=== PATIENT | female | born 1955 | race Two or more races ===

== ENCOUNTER 2025-03-05 00:53 | Inpatient (IN) | payer MEDICARE, OTHER ==
[~2025-03-05] VITALS: Ht 160 cm; Wt 72.8 kg
--- NOTE | 2025-03-05 01:34 | ED.PDOC ---
GI ASSESSMENT HPI Comments 69-year-old female who came to ER via EMS for GI bleed. Patient has a history of multiple sclerosis. From [facility], where patient came in for low hemoglobin levels, (7.1), and episodes of GI bleed. States she has been having abdominal pain and melena for the past 3 days. Denies any nausea or vomiting. Patient was given 1 unit of blood prior to arrival at the ER. Denies any prior history of GI bleed Chief Complaint: GI Bleed Time Seen by MD: 01:33 Reviewed Notes: Nurses Notes Allergies: Coded Allergies: Lisinopril (Verified Allergy, Unknown, 03/05/25) Information Source: Patient Mode of Arrival: EMS Timing: Days Duration: Intermittent Prehospital treatment: Other (Blood transfusion) Quality: Aching, Cramping Vomitus: None Stool: Black Severity: Moderate Recent: None Recent Hx of: None Pain Location: Epigastric Modifying Factors: Nothing Associated sign and symptoms: Diarrhea, Melena, Abdominal Pain Past Medical History Past Medical History (Other): Multiple sclerosis Surgical History: Denies all surgeries INTERIOR DESIGN DIRECTOR History: Denies all INTERIOR DESIGN DIRECTOR Hx Family History Family History: Reviewed,noncontributory to illness Social History Smoker: Non-Smoker Alcohol: Denies ETOH Use Drugs: Denies Drug Use Lives In: Home Constitutional: reports: weakness; denies: chills, diaphoresis, fatigue, fever, malaise, sweats, others EENTM: denies: blurred vision, double vision, ear bleeding, ear discharge, ear drainage, ear pain, ear ringing, eye pain, eye redness, hearing loss, mouth pain, mouth swelling, nasal discharge, nose bleeding, nose congestion, nose pain, photophobia, tearing, throat pain, throat swelling, voice changes, others Respiratory: denies: cough, hemoptysis, orthopnea, SOB at rest, shortness of breath, SOB with excertion, stridor, wheezing, others Cardiovascular: denies: chest pain, dizzy spells, diaphoresis, Dyspnea on exertion, edema, irregular heart beat, left arm pain, lightheadedness, palpitations, PND, syncope, others Gastrointestinal: reports: abdominal pain, melena; denies: abdomen distended, blood streaked bowels, constipated, diarrhea, dysphagia, difficulty swallowing, hematemesis, nausea, poor appetite, poor fluid intake, rectal bleeding, rectal pain, vomiting, others Genitourinary: denies: abnormal vagina bleeding, burning, dyspareunia, dysuria, flank pain, frequency, hematuria, incontinence, pain, , vagina discharge, urgency, others Neurological: denies: dizziness, fainting, headache, left sided numbness, left sided weakness, numbness, paresthesia, pre-existing deficit, right sided numbness, right sided weakness, seizure, speech problems, tingling, tremors, weakness, others Musculoskeletal: denies: back pain, gout, joint pain, joint swelling, muscle pain, muscle stiffness, neck pain, others Integumetry: denies: bruises, change in color, change in hair/nails, dryness, laceration, lesions, lumps, rash, wounds, others Allergic/Immunocompromised: denies: Difficulty Healing, Frequent Infections, Hives, Itching, others Hematologic/Lymphatic: denies: anemia, blood clots, easy bleeding, easy bruising, swollen glands, others Endocrine: denies: excessive hunger, excessive sweating, excessive thirst, excessive urination, flushing, intolerance to cold, intolerance to heat, unexplained weight gain, unexplained weight loss, others Psychiatric: denies: anxiety, bipolar disorder, depression, hopeless, panic disorder, schizophrenia, sleepless, suicidal, others Physical Exam General Appearance: No Apparent Distress, Normal HEENT: Normal ENT Inspection, Pharynx Normal, TMs Normal Neck: Full Range of Motion, Non-Tender, Normal, Normal Inspection Respiratory: Chest Non-Tender, Lungs Clear, No Accessory Muscle Use, No Respiratory Distress, Normal Breath Sounds Cardiovascular: No Edema, No JVD, No Murmur, No Gallop, Normal Peripheral Pulses, Regular Rate/Rhythm Breast Exam: Deferred Gastrointestinal: No Organomegaly, Non Tender, No Pulsatile Mass, Normal Bowel Sounds, Soft Genitalia: Deferred Pelvic: Deferred Rectal: Deferred Extremities: No calf tenderness, Normal capillary refill, Normal inspection, Normal range of motion, Non-tender, No pedal edema Musculoskeletal : Apperance: Normal Neurologic: Alert, mower mechanic II-XII nml as Tested, No Motor Deficits, Normal Affect, Normal Mood, No Sensory Deficits Cerebellar Function: Normal Reflexes: Normal Skin: Dry, Normal Color, Warm Lymphatic: No Adenopathy Was a procedure done? Was a procedure done?: No GI differential Dx Differential Diagnosis: Diverticular disease, Gastritis/PUD, Gastroenteritis, GI hemorrhage, Inflammatory BD, Ischemic Bowel, Dehydration, Hypovolemia, Anemia X-Ray, Labs, Meds, VS Vital Signs Date Time Temp Pulse Resp B/P (MAP) Pulse Ox O2 Delivery O2 Flow Rate FiO2 03/05/25 01:44 97.9 79 17 148/65 (92) 97 97.9 03/05/25 01:44 79 17 97 Room Air* 0 21 03/05/25 00:53 98.1 73 18 166/84 (111) 96 98.1 Lab Test 03/05/25 03:15 Range/Units White Blood Count 5.4 4.4-10.8 10^3/uL Red Blood Count 4.88 4.0-5.20 10^6/uL Hemoglobin 9.4 L 12.2-16.2 g/dL Hematocrit 31.0 L 36.0-46.0 % Mean Corpuscular Volume 63.5 L 80.0-100.0 fL Mean Corpuscular Hemoglobin 19.3 L 28.0-32.0 pg Mean Corpuscular Hemoglobin Concent 30.4 L 32.0-36.0 g/dL Red Cell Distribution Width 30.3 H 11.8-14.3 % Platelet Count 377 140-450 10^3/uL Mean Platelet Volume 8.4 6.9-10.8 fL Neutrophils (%) (Auto) 60.5 37.0-80.0 % Lymphocytes (%) (Auto) 19.6 10.0-50.0 % Monocytes (%) (Auto) 15.6 H 0.0-12.0 % Eosinophils (%) (Auto) 3.4 0.0-7.0 % Basophils (%) (Auto) 0.9 0.0-2.0 % Neutrophils # (Auto) 3.2 1.6-8.6 10 ^3/uL Lymphocytes # (Auto) 1.0 0.4-5.4 10 ^3/uL Monocytes # (Auto) 0.8 0-1.3 10 ^3/uL Eosinophils # (Auto) 0.2 0-0.8 10 ^3/uL Basophils # (Auto) 0 0-0.2 10 ^3/uL Nucleated Red Blood Cells 0.0 % Platelet Estimate Pending Sodium Level 141 136-145 mmol/L Potassium Level 4.3 3.5-5.1 mmol/L Chloride Level 108 H 98-107 mmol/L Carbon Dioxide Level 25 20-31 mmol/L Anion Gap 8 5-15 Blood Urea Nitrogen 11 9-23 mg/dL Creatinine 0.54 L 0.550-1.02 mg/dL Glomerular Filtration Rate Calc 101 >90 mL/min BUN/Creatinine Ratio 20.4 H 10.0-20.0 Serum Glucose 93 74-106 mg/dL Calcium Level 8.9 8.7-10.4 mg/dL Troponin I High Sensitivity 5 </=34 ng/L Time of 1ST Reevaluation: 01:29 Reevaluation 1ST: Unchanged Patient Education/Counseling: Diagnosis, Treatment Family Education/Counseling: No Family Present Departure 1 Departure Time of Disposition: 04:01 (Patient was a transfer for GI bleed from outside hospital. Patient with black stool or melena. Outside CT scan shows inflammation in the lower abdomen. Patient received 1 unit of blood and antibiotics at the outside hospital.) Impression: Primary Impression: Melena Additional Impression: Generalized weakness Disposition: ADMITTED INPATIENT Admit to: Med Surg Condition: Serious Critical Care Note Critical Care Time?: Yes Critical care comment: Concern for GI bleed Authorized and Performed by: Siddharth Porter MD Total critical care time: Approximately 34 minutes Due to a high probability of clinically significant, life threatening deterioration, the patient required my highest level of preparedness to intervene emergently and I personally spent this critical care time directly and personally managing the patient. This critical care time included obtaining a history; examining the patient; pulse oximetry; ordering and review of studies; arranging urgent treatment with development of a management plan; evaluation of patient's response to treatment; frequent reassessment; and, discussions with other providers. This critical care time was performed to assess and manage the high probability of imminent, life-threatening deterioration that could result in multi-organ failure. It was exclusive of separately billable procedures and treating other patients and teaching time. Please see my other sections and the rest of the note for further information on patient assessment and treatment. Stability Stability form required: No Heart Score Heart Score: Heart Score Response (Comments) Value History N/A 0 EKG N/A 0 Age N/A 0 Risk Factors N/A 0 Troponin N/A 0 Total 0 I personally scribed for SIDDHARTH PORTER MD ([email or web address]) on 03/05/25 at 01:34. Electronically submitted by Gamaliel Harrison ([email or web address]). SIDDHARTH PORTER MD March 05, 2025 01:34
[2025-03-05 01:44] VITALS: PULSE 79; RESP 17; O2SAT 97
[2025-03-05 03:35] LABS: Basophils % (auto) 0.9 % (0.0-2.0); Eosinophils # (auto) 0.2 10 ^3/uL (0-0.8); Monocytes # (auto) 0.8 10 ^3/uL (0-1.3)
[2025-03-05 03:37] LABS: Basophils # (auto) 0 10 ^3/uL (0-0.2); Eosinophils % (auto) 3.4 % (0.0-7.0); Hemoglobin 9.4 g/dL (12.2-16.2); Lymphocytes % (auto) 19.6 % (10.0-50.0); Mean Corpuscular Hemoglobin 19.3 pg (28.0-32.0); Mean Corpuscular Hgb Conc. 30.4 g/dL (32.0-36.0); Mean Corpuscular Volume 63.5 fL (80.0-100.0); Monocytes % (auto) 15.6 % (0.0-12.0); Neutrophils # (auto) 3.2 10 ^3/uL (1.6-8.6); Neutrophils % (auto) 60.5 % (37.0-80.0); Platelet Count (auto) 377 10^3/uL (140-450); Red Blood Cells 4.88 10^6/uL (4.0-5.20); Red Cell Distribution Width 30.3 % (11.8-14.3); White Blood Cell 5.4 10^3/uL (4.4-10.8)
[2025-03-05 03:47] LABS: Potassium 4.3 mmol/L (3.5-5.1); Sodium 141 mmol/L (136-145)
[2025-03-05 03:48] LABS: Anion Gap 8 (5-15); Calcium 8.9 mg/dL (8.7-10.4); Carbon Dioxide 25 mmol/L (20-31)
[2025-03-05 03:53] LABS: BUN/Creatinine Ratio 20.4 (10.0-20.0); Blood Urea Nitrogen 11 mg/dL (9-23); Glucose 93 mg/dL (74-106)
[2025-03-05 03:58] LABS: Chloride 108 mmol/L (98-107)
[2025-03-05 04:05] VITALS: PULSE 74; RESP 19; O2SAT 95
[2025-03-05 05:05] LABS: Anisocytosis Moderate; Hypochromia Moderate
[2025-03-05 05:06] LABS: Platelet Estimate Adequate
--- NOTE | 2025-03-05 07:43 | DVHHP2 ---
History of Present Illness Reason for Visit: abdominal pain History of Present Illness Ana Clayton is a 69YO F with pmHx of cholelithiasis, multiple sclerosis, bowel incontinence, urinary incontinence, and wheelchair-bound who presents to the ED with abdominal pain with dark stools x 3 days. Patient reports that she was at [facility] and prior to that she was at her primary doctor which told her that she had low iron which then she went to the ED for evaluation. She states at [place] she was given 1 unit of PRBC. Patient states that she uses a diaper for the incontinence. Patient states that she has not ambulated and uses an electric scooter to get around. Patient also reports that she lives alone, does not smoke drink or do any drugs. Patient denies any recent trauma or injury, recent sick contacts, recent trave ls, recent ingestion of spoiled food, fever, chills, chest pain, shortness of breath, nausea, vomiting, or diarrhea. Past Medical History Cholelithiasis Multiple sclerosis Bowel incontinence Urinary incontinence Past Surgical History: None Family History: Other (Dad with diabetes and liver cancer. Mom with abdominal cancer now .) Smoke: No ALCOHOL: none Drugs: None Lives: Alone Domestic Violence: Neg Review of Systems Gastrointestinal: Abdominal Pain, Melena Allergies: Coded Allergies: Lisinopril (Verified Allergy, Unknown, 03/05/25) Exam Vital Signs Vital Signs Date Time Temp Pulse Resp B/P (MAP) Pulse Ox O2 Delivery O2 Flow Rate FiO2 03/05/25 06:30 70 16 117/90 (99) 94 03/05/25 04:05 Room Air* 0 21 03/05/25 03:58 98.4 98.4 General Appearance: Alert, Oriented X3, Cooperative, No acute distress HEENT: Atraumatic, PERRLA, EOMI, Mucous membr. moist/pink Respiratory: Clear to auscultation, Normal air movement Cardiovascular: Regular rate, Normal S1, Normal S2, No murmurs Abdominal: Soft Neuro: Normal speech, Normal tone, Sensation intact Psych/Mental Status: Mental status NL, Mood NL Labs/Xrays Labs Test 03/05/25 05:53 03/05/25 03:15 Range/Units Troponin I High Sensitivity 5 </=34 ng/L White Blood Count 5.4 4.4-10.8 10^3/uL Red Blood Count 4.88 4.0-5.20 10^6/uL Hemoglobin 9.4 L 12.2-16.2 g/dL Hematocrit 31.0 L 36.0-46.0 % Mean Corpuscular Volume 63.5 L 80.0-100.0 fL Mean Corpuscular Hemoglobin 19.3 L 28.0-32.0 pg Mean Corpuscular Hemoglobin Concent 30.4 L 32.0-36.0 g/dL Red Cell Distribution Width 30.3 H 11.8-14.3 % Platelet Count 377 140-450 10^3/uL Mean Platelet Volume 8.4 6.9-10.8 fL Neutrophils (%) (Auto) 60.5 37.0-80.0 % Lymphocytes (%) (Auto) 19.6 10.0-50.0 % Monocytes (%) (Auto) 15.6 H 0.0-12.0 % Eosinophils (%) (Auto) 3.4 0.0-7.0 % Basophils (%) (Auto) 0.9 0.0-2.0 % Neutrophils # (Auto) 3.2 1.6-8.6 10 ^3/uL Lymphocytes # (Auto) 1.0 0.4-5.4 10 ^3/uL Monocytes # (Auto) 0.8 0-1.3 10 ^3/uL Eosinophils # (Auto) 0.2 0-0.8 10 ^3/uL Basophils # (Auto) 0 0-0.2 10 ^3/uL Nucleated Red Blood Cells 0.0 % Platelet Estimate Adequate Hypochromasia (manual) Moderate Anisocytosis (manual) Moderate Microcytosis Marked Sodium Level 141 136-145 mmol/L Potassium Level 4.3 3.5-5.1 mmol/L Chloride Level 108 H 98-107 mmol/L Carbon Dioxide Level 25 20-31 mmol/L Anion Gap 8 5-15 Blood Urea Nitrogen 11 9-23 mg/dL Creatinine 0.54 L 0.550-1.02 mg/dL Glomerular Filtration Rate Calc 101 >90 mL/min BUN/Creatinine Ratio 20.4 H 10.0-20.0 Serum Glucose 93 74-106 mg/dL Calcium Level 8.9 8.7-10.4 mg/dL Assessment/Plan Assessment/Plan Assessment Intractable abdominal pain with melena rule out GIB Anemia Hypertension Cholelithiasis History of multiple sclerosis wheelchair-bound History of bowel incontinence History of urinary incontinence Plan admit to ms RBC morphology Troponin negative x2 UA Type and screen Antiemetics Trend CBC pain mgmt Iron panel IV fluids CT abdomen and pelvis ordered Stool OB ordered NPO Per patient does not take home medications DVT prophylaxis-scds PUD prophylaxis-PPIs hold anticoags Discussed plan of care with patient and nurse GI consult Plan discussed with: Patient My Orders Orders - BRIAN MIJARES Procedure Category Date Status Time Admit ADMIT 03/05/25 Verified 07:39 Allergies TAMIKA 03/05/25 Verified 07:39 Code Status CODE 03/05/25 Verified 07:39 0.9% Ns 1000 Ml PHA 03/05/25 Verified 07:45 Comprehensive LAB 03/06/25 Verified Metabolic Panel 04:00 Npo (Nothing By DIET 03/05/25 Verified Mouth) Diet Breakfast Acetaminophen Tablet PHA 03/05/25 Verified (Tylenol Tablet) 07:45 Sequential TAMIKA 03/05/25 Verified Compression Device Nitroglycerin PHA 03/05/25 Verified Sublingual (Ntrostat 07:45 Morphine Sulfate PHA 03/05/25 Verified Injection 07:45 Stat Ekg For Chest TAMIKA 03/05/25 Verified Pain 07:39 Notify Md Of Changes TAMIKA 03/05/25 Verified From Base 07:39 [employer] TAMIKA 03/05/25 Verified 24 Hours 07:39 Emergency Dysrhythmia TAMIKA 03/05/25 Verified Protocol 07:39 Rhythm Strips Once TAMIKA 03/05/25 Verified Every Shift 07:39 Oxygen By Nasal RT 03/05/25 Verified Cannula 07:39 Stool Occult Blood LAB 03/05/25 Verified 07:39 * Gi Dvh Apprentice Painter Hand CONS 03/05/25 Verified 07:39 Urinalysis LAB 03/05/25 Verified 07:39 Iron Panel LAB 03/05/25 Verified 07:39 Date of Service: March 05, 2025 Billing Provider: BRIAN MIJARES Common Visit Codes: [id number] INP/OBS CARE (HIGH) BRIAN MIJARES March 05, 2025 07:43
[2025-03-05] MEDS ORDERED: MORPHINE SULFATE INJ 2 MG/ml SYRG IV PRN (07:45)
[2025-03-05] MEDS ORDERED: NITROGLYCERIN 0.4 MG SL TAB SL PRN (07:45)
[2025-03-05 07:50] VITALS: PULSE 78; RESP 20; O2SAT 95
[2025-03-05 08:42] LABS: % Iron Saturation 8.4 % (15-50)
[2025-03-05] MEDS ORDERED: PANTOPRAZOLE 40 MG/10 ML VIAL INJ IV SCH ×2 (09:00→10:00)
[2025-03-05] MEDS ORDERED: MORPHINE SULFATE 4 MG/ML SYR/VIAL IV PRN (10:45)
--- NOTE | 2025-03-05 10:46 | DVH ---
CLINICAL INFORMATION: Abdominal pain. TECHNIQUE: Axial CT images of the abdomen and pelvis were obtained without IV contrast. Coronal and s agittal reformatted images were obtained, reviewed, and stored. Evaluation of the parenchymal organs is limited without IV contrast. Evaluation of the bowel and mesentery is limited without oral contras t. All CT scans at this medical facility are performed using dose modulation techniques as appropriat e to a performed exam including the following: Automated exposure control was utilized; adjustment of the MA and/or KV according to patient size; and use of iterative reconstruction technique. CTDIvol = 23.23 mGy DLP = 1196.81 mGy-cm COMPARISON: Prior outside CT dated 03/04/2025 FINDINGS: Lung bases: Atelectasis in the lung bases. Liver: Grossly unremarkable in its noncontrast enhanced appearance. No abnormal density or focal lesi on identified. Biliary: Calcified gallstones in the gallbladder. Mildly prominent common bile duct measuring up to 1 .1 cm in diameter near the level of the ivette hepatis. Spleen: Unremarkable. Pancreas: Grossly unremarkable in its noncontrast enhanced appearance. Adrenal glands: Unremarkable. No mass. Kidneys: No hydronephrosis. No renal or ureteral calculi. Aorta/Vascular: Moderate atherosclerotic calcification. No abdominal aortic aneurysm. Retroperitoneum: Mildly prominent left external iliac lymph node measures up to 1.1 x 0.8 cm. Left pe lvic sidewall lymph node measures up to 1.2 x 1.0 cm. Right pelvic sidewall lymph node measures up to 2.0 x 0.8 cm. Bowel/mesentery: No small bowel obstruction. Appendix is not visualized. Moderate to marked wall thic kening of the rectum. Pelvic organs: Grossly unremarkable. Bladder: Unremarkable. No mass. Abdominal wall: No mass or hernia. Bones: No acute fracture or suspicious intraosseous lesion. IMPRESSION: 1. Rectal wall thickening, similar compared to the CT from 03/04/2025. Malignancy not excluded. 2. Prominent external iliac and pelvic sidewall lymph nodes are indeterminate. Malignancy, including shabnam metastatic disease not excluded, particularly given the rectal wall thickening. PET-CT could be considered if clinically indicated. 3. Cholelithiasis. 4. Dilated common bile duct. Common bile duct obstruction not excluded. Correlate with clinical find ings. MRCP could be obtained to further characterize if clinically indicated.
[2025-03-05] MEDS: PANTOPRAZOLE 40 MG/10 ML VIAL INJ IV ONE (11:03)
[2025-03-05] MEDS: SODIUM CHLORIDE 0.9% 1,000 ML IV SCH (11:03)
[2025-03-05] MEDS: HYDROcodone-ACET 5/325MG TAB PO PRN (11:32)
[2025-03-05 15:40] LABS: Urine Bacteria FEW /hpf (None Seen); Urine Blood Negative /uL (Negative); Urine Clarity Turbid (Clear); Urine Color Colorless (Yellow); Urine Protein, UAD Negative (Negative); Urine Specific Gravity 1.008 (1.001-1.035); Urine Squamous Epithelial Cell None Seen /hpf (<5); Urine Urobilinogen Normal (Negative); Urine WBC 21 /HPF (0-5); Urine pH 7.5 (5.0-9.0)
[2025-03-05 17:10] VITALS: RESP 18; O2SAT 97
--- NOTE | 2025-03-05 19:30 | DVHINCON2 ---
Date of service: March 05, 2025 Referring Physician Demarcus Reason for Consultation GI bleed History of Present Illness Patient is a 69-year-old female wheelchair dependent history of MS, transferred from [facility] for GI bleed. Patient received 1 unit of packed red blood cells. Imaging studies suggest rectal thickening, and prominent abdominal lymph nodes. GI consultation was obtained for evaluation. Patient states that she has had melena for several days. She denies any history of recent endoscopy and colonoscopy and states that her last endoscopy and colonoscopy was approximately four years ago. Patient states that she has had three endoscopies and colonoscopies in the past without any significant findings. Patient denies any hematemesis, dysphagia or odynophagia. Patient complains of back pain. Past Medical History MS Wheelchair-bound Cholelithiasis Past Surgical History Denies Family History: stomach cancer G8 MOTHER Diabetes mellitus G8 FATHER FHx: liver cancer G8 FATHER Hypertension G8 MOTHER Malignant neoplasm of breast G8 SISTER Social History No tobacco alcohol or recreational drug use Allergies: Coded Allergies: Lisinopril (Verified Allergy, Unknown, 03/05/25) Current Medications Current Medications Medications (Trade) Dose Ordered Sig/Rut Route PRN Reason Start Time Stop Time Status Last Admin Sodium Chloride 1,000 ml @ 120 mls/hr Q8H20M IV 03/05/25 07:45 03/05/25 16:07 Acetaminophen/ Hydrocodone Bitart (Jarreau 5/325MG Tab) 1 tab Q4HP PRN PO MODERATE PAIN (4-6 PAIN SCALE) 03/05/25 07:45 03/05/25 11:32 Ondansetron HCl (Zofran) 4 mg Q4HP PRN IV NAUSEA / VOMITING 03/05/25 07:45 Acetaminophen (Tylenol Tablet) 650 mg Q6HP PRN PO PAIN SCALE 1-3 OR TEMP>100.4 03/05/25 07:45 Nitroglycerin (Ntrostat Sublingual) 0.4 mg Q5MINP PRN SL FOR CHEST PAIN 03/05/25 07:45 Morphine Sulfate 2 mg Q30M PRN IV FOR CHEST PAIN 03/05/25 07:45 Cancel Pantoprazole Sodium (Protonix) 40 mg DAILY IV 03/05/25 10:00 03/05/25 09:00 DC Pantoprazole Sodium (Protonix) 40 mg BID IV 03/05/25 09:00 03/05/25 10:46 DC Morphine Sulfate 2 mg Q30M PRN IV for chest pain 03/05/25 10:45 Pantoprazole Sodium (Protonix) 40 mg BID IV 03/05/25 22:00 Review of Systems Review of systems as per HPI Vital Signs Vital Signs Date Time Temp Pulse Resp B/P (MAP) Pulse Ox O2 Delivery O2 Flow Rate FiO2 03/05/25 17:10 18 97 Room Air* 0 21 03/05/25 14:00 98.8 76 162/64 (96) 98.8 Physical Exam General: Alert and oriented Head: NC/AT EOMI PERRLA Heart: Regular rate and rhythm Abdomen: Soft nontender nondistended Extremity: No clubbing cyanosis or edema Labs/Diagnostic Data Labs Test 03/05/25 11:00 03/05/25 05:53 03/05/25 03:15 Range/Units Urine Color Colorless Yellow Urine Clarity Turbid H Clear Urine pH 7.5 5.0-9.0 Urine Specific [place] 1.008 1.001-1.035 Urine Protein Negative Negative Urine Ketones Negative Negative Urine Blood Negative Negative /uL Urine Nitrite 1+ H Negative Urine Bilirubin Negative Negative Urine Urobilinogen Normal Negative mg/dL Urine Leukocyte Esterase 3+ Negative /uL Urine RBC 1 0 - 4 /hpf Urine Microscopic WBC 21 H 0-5 /HPF Urine Squamous Epithelial Cells None seen <5 /hpf Urine Bacteria Few H None Seen /hpf Urine Glucose Normal Normal mg/dL Iron Level 27 L 50-170 ug/dL Total Iron Binding Capacity 321 250-425 ug/dL Percent Iron Saturation 8.4 L 15-50 % Troponin I High Sensitivity 5 </=34 ng/L White Blood Count 5.4 4.4-10.8 10^3/uL Red Blood Count 4.88 4.0-5.20 10^6/uL Hemoglobin 9.4 L 12.2-16.2 g/dL Hematocrit 31.0 L 36.0-46.0 % Mean Corpuscular Volume 63.5 L 80.0-100.0 fL Mean Corpuscular Hemoglobin 19.3 L 28.0-32.0 pg Mean Corpuscular Hemoglobin Concent 30.4 L 32.0-36.0 g/dL Red Cell Distribution Width 30.3 H 11.8-14.3 % Platelet Count 377 140-450 10^3/uL Mean Platelet Volume 8.4 6.9-10.8 fL Neutrophils (%) (Auto) 60.5 37.0-80.0 % Lymphocytes (%) (Auto) 19.6 10.0-50.0 % Monocytes (%) (Auto) 15.6 H 0.0-12.0 % Eosinophils (%) (Auto) 3.4 0.0-7.0 % Basophils (%) (Auto) 0.9 0.0-2.0 % Neutrophils # (Auto) 3.2 1.6-8.6 10 ^3/uL Lymphocytes # (Auto) 1.0 0.4-5.4 10 ^3/uL Monocytes # (Auto) 0.8 0-1.3 10 ^3/uL Eosinophils # (Auto) 0.2 0-0.8 10 ^3/uL Basophils # (Auto) 0 0-0.2 10 ^3/uL Nucleated Red Blood Cells 0.0 % Platelet Estimate Adequate Hypochromasia (manual) Moderate Anisocytosis (manual) Moderate Microcytosis Marked Sodium Level 141 136-145 mmol/L Potassium Level 4.3 3.5-5.1 mmol/L Chloride Level 108 H 98-107 mmol/L Carbon Dioxide Level 25 20-31 mmol/L Anion Gap 8 5-15 Blood Urea Nitrogen 11 9-23 mg/dL Creatinine 0.54 L 0.550-1.02 mg/dL Glomerular Filtration Rate Calc 101 >90 mL/min BUN/Creatinine Ratio 20.4 H 10.0-20.0 Serum Glucose 93 74-106 mg/dL Calcium Level 8.9 8.7-10.4 mg/dL Assessment 1. GI bleed 2. MS 3. Microcytic anemia 4. Abnormal imaging of the rectum 5. Lymphadenopathy 6. Dilated common bile duct 7. Family history of stomach and liver cancer Problems(with codes): (1) Melena (2) Generalized weakness Plan/Recommendation 1. Follow H&H and transfuse to keep hemoglobin above seven 2. Protonix drip 3. Consider EGD and colonoscopy given findings on imaging 4. We will follow up in a.m. tomorrow Plan discussed with: Patient BRENDA JERONIMO MD March 05, 2025 19:30
[2025-03-05 20:00] VITALS: PULSE 79; O2SAT 97
[2025-03-05] MEDS: PANTOPRAZOLE 40 MG/10 ML VIAL INJ IV SCH (21:03)
[2025-03-05] MEDS: hydrALAZINE HCL 20 MG/ML VL IV PRN (22:55)
[2025-03-06] VITALS (7 sets, daily range): BP systolic 138–172; BP diastolic 81–96; PULSE 86–101; RESP 16–19; TEMP 97.6–98.4; O2SAT 93–96
[2025-03-06 08:02] LABS: Basophils # (auto) 0 10 ^3/uL (0-0.2); Eosinophils # (auto) 0 10 ^3/uL (0-0.8); Hemoglobin 10.5 g/dL (12.2-16.2); Lymphocytes # (auto) 0.6 10 ^3/uL (0.4-5.4); Mean Corpuscular Volume 64.1 fL (80.0-100.0); Monocytes # (auto) 0.5 10 ^3/uL (0-1.3); Neutrophils # (auto) 7.2 10 ^3/uL (1.6-8.6); White Blood Cell 8.4 10^3/uL (4.4-10.8)
[2025-03-06 08:06] LABS: Basophils % (auto) 0.3 % (0.0-2.0); Hematocrit 35.1 % (36.0-46.0); Lymphocytes % (auto) 7.6 % (10.0-50.0); Mean Corpuscular Hemoglobin 19.1 pg (28.0-32.0); Mean Corpuscular Hgb Conc. 29.8 g/dL (32.0-36.0); Neutrophils % (auto) 86.1 % (37.0-80.0); Platelet Count (auto) 406 10^3/uL (140-450); Red Blood Cells 5.47 10^6/uL (4.0-5.20); Red Cell Distribution Width 30.9 % (11.8-14.3)
[2025-03-06 08:08] LABS: Alanine Aminotransferase 10 U/L (7-40); Albumin 4.2 g/dL (3.2-4.8); Alkaline Phosphatase 107 U/L (46-116); Anion Gap 10 (5-15); Aspartate Aminotransferase 14 U/L (13-40); BUN/Creatinine Ratio 14.5 (10.0-20.0); Bilirubin, Total 0.8 mg/dL (0.2-1.0); Blood Urea Nitrogen 9 mg/dL (9-23); Calcium 9.6 mg/dL (8.7-10.4); Carbon Dioxide 24 mmol/L (20-31); Chloride 105 mmol/L (98-107); Potassium 3.9 mmol/L (3.5-5.1); Sodium 139 mmol/L (136-145); Total Protein 7.6 g/dL (5.7-8.2)
[2025-03-06 08:17] LABS: Glucose 106 mg/dL (74-106)
--- NOTE | 2025-03-06 10:58 | PRN ---
Misceleneous Note Note Note March 06, 2025 Subjective: Patient is hungry. She denies any gross bleeding. She complains of black pain but believes it is due to her lying in the bed where as she does not lying in bed at home she lives in [facility]. Current Medications Medications (Trade) Dose Ordered Sig/Rut Route PRN Reason Start Time Stop Time Status Last Admin Hydralazine HCl (Apresoline Injection) 10 mg Q6HP PRN IV SBP>150 03/05/25 22:45 03/05/25 22:55 Pantoprazole Sodium (Protonix) 40 mg BID IV 03/05/25 22:00 03/06/25 10:26 Vital Signs Date Time Temp Pulse Resp B/P (MAP) Pulse Ox O2 Delivery O2 Flow Rate FiO2 03/06/25 09:00 98.4 98 18 144/86 (105) 96 98.4 03/05/25 20:00 Room Air* 0 21 General: Alert and oriented x4 NC/AT EOMI PERRLA O/P clear Regular rate and rhythm Soft nontender nondistended No clubbing cyanosis or edema Labs Test 03/06/25 06:44 03/05/25 11:00 03/05/25 05:53 03/05/25 03:15 Range/Units White Blood Count 8.4 # 4.4-10.8 10^3/uL Red Blood Count 5.47 H 4.0-5.20 10^6/uL Hemoglobin 10.5 L 12.2-16.2 g/dL Hematocrit 35.1 #L 36.0-46.0 % Mean Corpuscular Volume 64.1 L 80.0-100.0 fL Mean Corpuscular Hemoglobin 19.1 L 28.0-32.0 pg Mean Corpuscular Hemoglobin Concent 29.8 L 32.0-36.0 g/dL Red Cell Distribution Width 30.9 H 11.8-14.3 % Platelet Count 406 140-450 10^3/uL Mean Platelet Volume 8.6 6.9-10.8 fL Neutrophils (%) (Auto) 86.1 H 37.0-80.0 % Lymphocytes (%) (Auto) 7.6 L 10.0-50.0 % Monocytes (%) (Auto) 6.0 0.0-12.0 % Eosinophils (%) (Auto) 0.0 0.0-7.0 % Basophils (%) (Auto) 0.3 0.0-2.0 % Neutrophils # (Auto) 7.2 1.6-8.6 10 ^3/uL Lymphocytes # (Auto) 0.6 0.4-5.4 10 ^3/uL Monocytes # (Auto) 0.5 0-1.3 10 ^3/uL Eosinophils # (Auto) 0 0-0.8 10 ^3/uL Basophils # (Auto) 0 0-0.2 10 ^3/uL Nucleated Red Blood Cells 0.0 % Sodium Level 139 136-145 mmol/L Potassium Level 3.9 3.5-5.1 mmol/L Chloride Level 105 98-107 mmol/L Carbon Dioxide Level 24 20-31 mmol/L Anion Gap 10 5-15 Blood Urea Nitrogen 9 9-23 mg/dL Creatinine 0.62 0.550-1.02 mg/dL Glomerular Filtration Rate Calc 98 >90 mL/min BUN/Creatinine Ratio 14.5 10.0-20.0 Serum Glucose 106 74-106 mg/dL Calcium Level 9.6 8.7-10.4 mg/dL Total Bilirubin 0.8 0.2-1.0 mg/dL Aspartate Amino Transferase (AST) 14 13-40 U/L Alanine Aminotransferase (ALT) 10 7-40 U/L Alkaline Phosphatase 107 46-116 U/L Total Protein 7.6 5.7-8.2 g/dL Albumin 4.2 3.2-4.8 g/dL Urine Color Colorless Yellow Urine Clarity Turbid H Clear Urine pH 7.5 5.0-9.0 Urine Specific [facility] 1.008 1.001-1.035 Urine Protein Negative Negative Urine Ketones Negative Negative Urine Blood Negative Negative /uL Urine Nitrite 1+ H Negative Urine Bilirubin Negative Negative Urine Urobilinogen Normal Negative mg/dL Urine Leukocyte Esterase 3+ Negative /uL Urine RBC 1 0 - 4 /hpf Urine Microscopic WBC 21 H 0-5 /HPF Urine Squamous Epithelial Cells None seen <5 /hpf Urine Bacteria Few H None Seen /hpf Urine Glucose Normal Normal mg/dL Iron Level 27 L 50-170 ug/dL Total Iron Binding Capacity 321 250-425 ug/dL Percent Iron Saturation 8.4 L 15-50 % Troponin I High Sensitivity 5 </=34 ng/L Platelet Estimate Adequate Hypochromasia (manual) Moderate Anisocytosis (manual) Moderate Microcytosis Marked Impression: 1. GI bleed 2. Multiple sclerosis 3. Abnormal imaging of the GI tract with possible rectal thickening and pelvic lymph nodes concerning for colitis versus malignancy 4. Dilated common bile duct with normal liver enzymes Recommendations: 1. Clear liquid diet 2. GoLYTELY preparation 3. NPO after midnight 4. Continue with Protonix 5. Follow H&H and transfuse as needed 6. EGD and colonoscopy tomorrow 7. informed consent was obtained after risks benefits and alternatives were discussed with the patient. BRENDA JERONIMO MD March 06, 2025 10:58
[2025-03-06] MEDS: GOLYTELY 4L KIT PO ONE (12:16)
[2025-03-07] VITALS (8 sets, daily range): BP systolic 147–176; BP diastolic 70–95; PULSE 95–108; RESP 17–20; TEMP 98.1–98.9; O2SAT 94–96
[2025-03-07] MEDS ORDERED: fentaNYL CITRATE 100 MCG/2 ML VL ONE (07:47)
[2025-03-07 07:56] LABS: INR 1.12 (0.9-1.15); Partial Thromboplastin Time 26.5 SEC (24.5-34.5); Prothrombin Time 11.7 sec (9.3-11.8)
[2025-03-07] MEDS ORDERED: PROPOFOL 10 MG/ML 20 ML IV ONE (08:14)
[2025-03-07] MEDS ORDERED: LIDOCAINE HCL 100 MG/5ML (2%) SYRG INJ IV ONE (08:14)
[2025-03-07] MEDS: ONDANSETRON HCL 4 MG/2 ML VIAL IV ONE (08:45)
--- NOTE | 2025-03-07 09:08 | DVHNC2 ---
Procedure - March 07, 2025 ROCEDURE PERFORMED BY: BRENDA JERONIMO MD PROCEDURE PERFORMED: 1. ESOPHAGOGASTRODUODENOSCOPY WITH ANESTHESIA 2. ESOPHAGOGASTRODUODENOSCOPY WITH BIOPSY PRE-PROCEDURE DIAGNOSIS: 1. GI bleed 2. Anemia POSTPROCEDURE DIAGNOSIS: 1. Mild nonerosive gastritis 2. 2 cm hiatal hernia 3. Small gastric polyps 4. No findings for GI bleeding on endoscopy INDICATION FOR PROCEDURE: Patient is a 69-year-old female admitted with GI bleeding. EGD and colonoscopy warranted for evaluation. MEDICATIONS USED: PER ANESTHESIOLOGIST DR. ECHEVERRIA DETAILS OF THE PROCEDURE: Informed consent was obtained after risks, benefits, and alternatives were discussed at length with the patient. The patient gave consent to the procedure as well as the medication used for sedation. She was placed in the left lateral decubitus position. An Olympus endoscope was inserted into the oropharynx and advanced into the esophagus, then into the stomach then into the duodenal bulb and duodenum. The duodenal bulb and duodenum were normal in appearance. The scope was then withdrawn. The stomach showed mild gastritis. Biopsies were taken to rule out H pylori as well as to rule out other pathology. Retroflexion showed a 2 cm hiatal hernia. The scope was then withdrawn. The patient had several small gastric polyps that were not biopsied. There was no evidence of old blood, fresh blood, ulcers, arteriovenous malformations, masses, strictures or any reasons for patient to have GI bleeding. The Z-line was at 38 cm. The patient tolerated the procedure well The patient remained in the left lateral decubitus position digital rectal exam showed solid stool. The scope was inserted into the rectum. Patient had solid stool and the scope was withdrawn. IMPRESSION: 1. Mild gastritis and several small gastric polyps 2. 2 cm hiatal hernia 3. Suboptimal colon preparation RECOMMENDATIONS: 1. Follow up with biopsies 2. Anti-reflux precautions 3. Patient will need more preparation and scheduled for colonoscopy 4. Follow H&H 5. Transfuse to keep hemoglobin above seven 6. Consider further workup if colonoscopy is negative with small bowel series and/or capsule endoscopy BRENDA JERONIMO MD Mar 07, 2025 09:08
[2025-03-07] MEDS: GOLYTELY 4L KIT PO ONE (09:30)
--- NOTE | 2025-03-07 10:45 | DVHPN2 ---
Reviewed: Care Plan, H&P, Labs, Medications, Previous Orders, Radiology Changes from previous H/P or p: No Changes General: Per HPI Gastrointestinal: Abdominal Pain, Melena Objective Vitals Vital Signs Date Time Temp Pulse Resp B/P (MAP) Pulse Ox O2 Delivery O2 Flow Rate FiO2 03/07/25 08:48 Room Air 0 97 03/07/25 08:48 99 18 149/82 (104) 97 03/07/25 08:20 98.1 98.1 Intake/Output Intake and Output 03/07/25 07:00 Intake Total 5520 ml Output Total 1350 ml Balance 4170 ml Intake Oral 2950 ml IV Total 2570 ml Output Urine Total 1350 ml # Bowel Movements 5 General Appearance: Alert, Oriented X3, Cooperative Cardiovascular: Regular rate, Normal S1, Normal S2 Neuro: Normal gait, Normal speech Medications Current Medications Medications Dose Ordered Sig/Rut Route Start Time Stop Time Status Last Admin Dose Admin Sodium Chloride 1,000 ml @ 120 mls/hr Q8H20M IV 03/05/25 07:45 03/07/25 09:14 120 MLS/HR Acetaminophen/ Hydrocodone Bitart 1 tab Q4HP PRN PO 03/05/25 07:45 03/07/25 09:30 1 TAB Ondansetron HCl 4 mg Q4HP PRN IV 03/05/25 07:45 Acetaminophen 650 mg Q6HP PRN PO 03/05/25 07:45 Nitroglycerin 0.4 mg Q5MINP PRN SL 03/05/25 07:45 Morphine Sulfate 2 mg Q30M PRN IV 03/05/25 07:45 Cancel Morphine Sulfate 2 mg Q30M PRN IV 03/05/25 10:45 Pantoprazole Sodium 40 mg BID IV 03/05/25 22:00 03/07/25 09:13 40 MG Hydralazine HCl 10 mg Q6HP PRN IV 03/05/25 22:45 03/07/25 04:54 10 MG Laboratory Results Laboratory Tests 03/06/25 06:44 Coagulation Test 03/07/25 07:29 Prothrombin Time 11.7 sec (9.3-11.8) Prothrombin Time INR 1.12 (0.9-1.15) Activated Partial Thromboplast Time 26.5 SEC (24.5-34.5) Urinalysis Test 03/05/25 11:00 Urine Color Colorless (Yellow) Urine Clarity Turbid (Clear) H Urine pH 7.5 (5.0-9.0) Urine Specific [place] 1.008 (1.001-1.035) Urine Protein Negative (Negative) Urine Ketones Negative (Negative) Urine Blood Negative /uL (Negative) Urine Nitrite 1+ (Negative) H Urine Bilirubin Negative (Negative) Urine Urobilinogen Normal mg/dL (Negative) Urine Leukocyte Esterase 3+ /uL (Negative) Urine RBC 1 /hpf (0 - 4) Urine Microscopic WBC 21 /HPF (0-5) H Urine Squamous Epithelial Cells None seen /hpf (<5) Urine Bacteria Few /hpf (None Seen) H Urine Glucose Normal mg/dL (Normal) Labs and/or images reviewed: Labs reviewed by me, Image(s) reviewed by me Assessment/Plan Assessment/Plan Ana Clayton is a 69YO F with pmHx of cholelithiasis, multiple sclerosis, bowel incontinence, urinary incontinence, and wheelchair-bound who presents to the ED with abdominal pain with dark stools x 3 days. Patient reports that she was at [facility] and prior to that she was at her primary doctor which told her that she had low iron which then she went to the ED for evaluation. She states at [place] she was given 1 unit of PRBC. Patient states that she uses a diaper for the incontinence. Patient states that she has not ambulated and uses an electric scooter to get around. Patient also reports that she lives alone, does not smoke drink or do any drugs. Patient denies any recent trauma or injury, recent sick contacts, recent travels, recent ingestion of spoiled food, fever, chills, chest pain, shortness of breath, nausea, vomiting, or diarrhea. Intractable abdominal pain with melena rule out GIB Anemia Hypertension Cholelithiasis History of multiple sclerosis wheelchair-bound History of bowel incontinence History of urinary incontinence 03/06/2025 GI to evaluated for scoping will consider abx for UTI Plan discussed with: Patient Date of Service: March 06, 2025 Billing Provider: JORDAN ELDRIDGE DO Common Visit Codes: [id number] INP/OBS CARE(HIGH) JORDAN ELDRIDGE DO Mar 07, 2025 10:45
--- NOTE | 2025-03-07 10:45 | DVHPN2 ---
Reviewed: Care Plan, H&P, Labs, Medications Changes from previous H/P or p: No Changes General: Per HPI Gastrointestinal: Abdominal Pain, Melena Objective Vitals Vital Signs Date Time Temp Pulse Resp B/P (MAP) Pulse Ox O2 Delivery O2 Flow Rate FiO2 03/07/25 08:48 Room Air 0 97 03/07/25 08:48 99 18 149/82 (104) 97 03/07/25 08:20 98.1 98.1 Intake/Output Intake and Output 03/07/25 07:00 Intake Total 5520 ml Output Total 1350 ml Balance 4170 ml Intake Oral 2950 ml IV Total 2570 ml Output Urine Total 1350 ml # Bowel Movements 5 General Appearance: Alert, Oriented X3 HEENT: Atraumatic Cardiovascular: Regular rate, Normal S1 Medications Current Medications Medications Dose Ordered Sig/Rut Route Start Time Stop Time Status Last Admin Dose Admin Sodium Chloride 1,000 ml @ 120 mls/hr Q8H20M IV 03/05/25 07:45 03/07/25 09:14 120 MLS/HR Acetaminophen/ Hydrocodone Bitart 1 tab Q4HP PRN PO 03/05/25 07:45 03/07/25 09:30 1 TAB Ondansetron HCl 4 mg Q4HP PRN IV 03/05/25 07:45 Acetaminophen 650 mg Q6HP PRN PO 03/05/25 07:45 Nitroglycerin 0.4 mg Q5MINP PRN SL 03/05/25 07:45 Morphine Sulfate 2 mg Q30M PRN IV 03/05/25 07:45 Cancel Morphine Sulfate 2 mg Q30M PRN IV 03/05/25 10:45 Pantoprazole Sodium 40 mg BID IV 03/05/25 22:00 03/07/25 09:13 40 MG Hydralazine HCl 10 mg Q6HP PRN IV 03/05/25 22:45 03/07/25 04:54 10 MG Laboratory Results Laboratory Tests 03/06/25 06:44 Coagulation Test 03/07/25 07:29 Prothrombin Time 11.7 sec (9.3-11.8) Prothrombin Time INR 1.12 (0.9-1.15) Activated Partial Thromboplast Time 26.5 SEC (24.5-34.5) Urinalysis Test 03/05/25 11:00 Urine Color Colorless (Yellow) Urine Clarity Turbid (Clear) H Urine pH 7.5 (5.0-9.0) Urine Specific [place] 1.008 (1.001-1.035) Urine Protein Negative (Negative) Urine Ketones Negative (Negative) Urine Blood Negative /uL (Negative) Urine Nitrite 1+ (Negative) H Urine Bilirubin Negative (Negative) Urine Urobilinogen Normal mg/dL (Negative) Urine Leukocyte Esterase 3+ /uL (Negative) Urine RBC 1 /hpf (0 - 4) Urine Microscopic WBC 21 /HPF (0-5) H Urine Squamous Epithelial Cells None seen /hpf (<5) Urine Bacteria Few /hpf (None Seen) H Urine Glucose Normal mg/dL (Normal) Labs and/or images reviewed: Labs reviewed by me, Image(s) reviewed by me Assessment/Plan Assessment/Plan Ana Clayton is a 69YO F with pmHx of cholelithiasis, multiple sclerosis, bowel incontinence, urinary incontinence, and wheelchair-bound who presents to the ED with abdominal pain with dark stools x 3 days. Patient reports that she was at [facility] and prior to that she was at her primary doctor which told her that she had low iron which then she went to the ED for evaluation. She states at [place] she was given 1 unit of PRBC. Patient states that she uses a diaper for the incontinence. Patient states that she has not ambulated and uses an electric scooter to get around. Patient also reports that she lives alone, does not smoke drink or do any drugs. Patient denies any recent trauma or injury, recent sick contacts, recent travels, recent ingestion of spoiled food, fever, chills, chest pain, shortness of breath, nausea, vomiting, or diarrhea. Intractable abdominal pain with melena rule out GIB Anemia Hypertension Cholelithiasis History of multiple sclerosis wheelchair-bound History of bowel incontinence History of urinary incontinence acute cystitis urinary incontinence 03/06/2025 GI to evaluated for scoping will consider abx for UTI 03/07/2025 pt had GI today, no active bleeding started empirical iv abx d/c [place] Plan discussed with: Patient Date of Service: Mar 07, 2025 Billing Provider: JORDAN ELDRIDGE DO Common Visit Codes: [id number] INP/OBS CARE(HIGH) JORDAN ELDRIDGE DO Mar 07, 2025 10:45
[2025-03-07] MEDS: ONDANSETRON HCL 4 MG/2 ML VIAL IV PRN (18:28)
[2025-03-08] VITALS (7 sets, daily range): BP systolic 120–162; BP diastolic 74–92; PULSE 81–102; RESP 16–20; TEMP 98.3–98.8; O2SAT 94–95
[2025-03-08] MEDS: cefTRIAXone 1GM/50ML D5W 50 ML IV SCH (09:25)
--- NOTE | 2025-03-08 13:39 | DVHPN2 ---
Progress Note Date Seen: Mar 08, 2025 Medical Necessity Reason Pt with a Central, PICC or Fol: No Subjective Patient reports: No new complaints Review of Systems: HEENT:Normal, CVS:Normal, RESPIRATORY:Normal, GI:Normal, :Normal, MSK:Normal, NEURO:Normal Objective vital signs Vital Sign Date Time Temp Pulse Resp B/P (MAP) Pulse Ox O2 Delivery O2 Flow Rate FiO2 03/08/25 12:59 166/86 03/08/25 09:00 98.8 81 16 94 98.8 03/08/25 08:15 Room Air* 0 21 Total Intake and Output 03/07/25 03/07/25 03/08/25 15:00 23:00 07:00 Intake Total 210 ml 2950 ml Output Total 450 ml Balance -240 ml 2950 ml medications Current Medications Medications Dose Ordered Sig/Rut Route Start Time Stop Time Status Last Admin Dose Admin Sodium Chloride 1,000 ml @ 120 mls/hr Q8H20M IV 03/05/25 07:45 03/08/25 09:27 120 MLS/HR Acetaminophen/ Hydrocodone Bitart 1 tab Q4HP PRN PO 03/05/25 07:45 03/08/25 13:05 1 TAB Ondansetron HCl 4 mg Q4HP PRN IV 03/05/25 07:45 03/07/25 18:28 4 MG Acetaminophen 650 mg Q6HP PRN PO 03/05/25 07:45 Nitroglycerin 0.4 mg Q5MINP PRN SL 03/05/25 07:45 Morphine Sulfate 2 mg Q30M PRN IV 03/05/25 07:45 Cancel Morphine Sulfate 2 mg Q30M PRN IV 03/05/25 10:45 Pantoprazole Sodium 40 mg BID IV 03/05/25 22:00 03/08/25 09:27 40 MG Hydralazine HCl 10 mg Q6HP PRN IV 03/05/25 22:45 03/08/25 12:59 10 MG Ceftriaxone Sodium 50 ml @ 100 mls/hr DAILY@09 IV 03/08/25 09:00 03/08/25 09:25 100 MLS/HR Examination: GENERAL:Normal, HEENT:Normal, NECK:Normal, LUNGS:Normal, CVS:Normal, ABDOMEN:Normal, MSK:Normal, MSK:Abnormal (weakness both legs), SKIN:Normal, NEURO:Normal, :Normal laboratory and microbiology Laboratory Tests 03/06/25 06:44 Test 03/06/25 06:44 Range/Units Serum Glucose 106 74-106 mg/dL Microbiology Date/Time Source Procedure Growth Status 03/07/25 16:53 Voided Urine Urine Culture - Preliminary Resulted Problem List/Assessment/Plan Problem List/Assessment/Plan #1 gi bleed/rectal thickening: colonoscopy in am #2 anemia s/p transfusion #3 MS #4 htn #5 uti :iv rocephin #6 gallstones #7 pelvic lymphadenopathy advance care planning- full code- time spent 19 mins Plan discussed with: Patient Dietary Evaluation Review Comments: 1) Initiate Ensure clear qd. Encourage optimal PO intake 2) Advance to low-fat diet when medically feasible, pending WIRE WALKER approval 3) Refer to outpatient RD for weight management 4) Follow-up with gastroenterology and neurology 5) Continue to monitor I&O, labs, and skin integrity Expected Outcomes/Goals: 1) appetite and labs to improve 2) diet to advance 2) f/u in 2-3 days Date of Service: Mar 08, 2025 Billing Provider: ISAAC TAMEZ MD Common Visit Codes: [id number] INP/OBS CARE(HIGH) Secondary Visit Codes: [id number] CARE PLAN 30 MINUTES ISAAC TAMEZ MD Mar 08, 2025 13:39
[2025-03-08] MEDS: SODIUM CHLORIDE 0.9% 1,000 ML IV SCH (13:45)
--- NOTE | 2025-03-08 14:12 | DVHPN2 ---
Subjective Patient is seen by Dr. Lou, unable to complete colonoscopy due to poor prep Patient would still like to have the colonoscopy done during her hospital stay Reviewed: Care Plan, H&P, Labs, Medications Changes from previous H/P or p: No Changes General: Per HPI Gastrointestinal: Abdominal Pain, Melena Objective Vitals Vital Signs Date Time Temp Pulse Resp B/P (MAP) Pulse Ox O2 Delivery O2 Flow Rate FiO2 03/08/25 12:59 166/86 03/08/25 09:00 98.8 81 16 94 98.8 03/08/25 08:15 Room Air* 0 21 Intake/Output Intake and Output 03/08/25 07:00 Intake Total 3160 ml Output Total 450 ml Balance 2710 ml Intake Oral 1710 ml IV Total 1450 ml Output Urine Total 450 ml # Voids 10 # Bowel Movements 12 General Appearance: Alert, Oriented X3, Cooperative, No acute distress, mild distress, moderate distress, severe distress, Other HEENT: Atraumatic Lungs: Clear to auscultation, Normal air movement, Other Cardiovascular: Regular rate, Normal S1, Normal S2, No murmurs, Gallops, Rubs, Other Abdomen: Normal bowel sounds, Soft, No tenderness, No hepatospenomegaly, No masses, Other Neuro: Normal gait, Normal speech Medications Current Medications Medications Dose Ordered Sig/Rut Route Start Time Stop Time Status Last Admin Dose Admin Acetaminophen/ Hydrocodone Bitart 1 tab Q4HP PRN PO 03/05/25 07:45 03/08/25 13:05 1 TAB Ondansetron HCl 4 mg Q4HP PRN IV 03/05/25 07:45 03/07/25 18:28 4 MG Acetaminophen 650 mg Q6HP PRN PO 03/05/25 07:45 Nitroglycerin 0.4 mg Q5MINP PRN SL 03/05/25 07:45 Morphine Sulfate 2 mg Q30M PRN IV 03/05/25 07:45 Cancel Morphine Sulfate 2 mg Q30M PRN IV 03/05/25 10:45 Pantoprazole Sodium 40 mg BID IV 03/05/25 22:00 03/08/25 09:27 40 MG Hydralazine HCl 10 mg Q6HP PRN IV 03/05/25 22:45 03/08/25 12:59 10 MG Ceftriaxone Sodium 50 ml @ 100 mls/hr DAILY@09 IV 03/08/25 09:00 03/08/25 09:25 100 MLS/HR Sodium Chloride 1,000 ml @ 100 mls/hr Q10H IV 03/08/25 13:45 Laboratory Results Laboratory Tests 03/06/25 06:44 Urinalysis Test 03/05/25 11:00 Urine Color Colorless (Yellow) Urine Clarity Turbid (Clear) H Urine pH 7.5 (5.0-9.0) Urine Specific [place] 1.008 (1.001-1.035) Urine Protein Negative (Negative) Urine Ketones Negative (Negative) Urine Blood Negative /uL (Negative) Urine Nitrite 1+ (Negative) H Urine Bilirubin Negative (Negative) Urine Urobilinogen Normal mg/dL (Negative) Urine Leukocyte Esterase 3+ /uL (Negative) Urine RBC 1 /hpf (0 - 4) Urine Microscopic WBC 21 /HPF (0-5) H Urine Squamous Epithelial Cells None seen /hpf (<5) Urine Bacteria Few /hpf (None Seen) H Urine Glucose Normal mg/dL (Normal) Microbiology Microbiology Date/Time Source Procedure Growth Status 03/07/25 16:53 Voided Urine Urine Culture - Preliminary Resulted Assessment/Plan Assessment/Plan GI bleed Microcytic anemia Abnormal imaging of the rectum MS Plan Discussed with Dr. Barry Schedule for colonoscopy with sedation tomorrow 03/09/2025. Discussed risks benefits and alternatives of procedure and sedation. Patient understands and agrees Clear liquid diet Mag citrate Plan discussed with: Patient, Other (RN) Date of Service: Mar 08, 2025 Billing Provider: BERNICE MENENDEZ Common Visit Codes: [id number] INP/OBS CARE(HIGH) BERNICE MENENDEZ Mar 08, 2025 14:12
--- NOTE | 2025-03-08 15:06 | DVH ---
INDICATION: htn TECHNIQUE: Frontal view of the chest. COMPARISON: None FINDINGS: . The heart and mediastinal contours are grossly unremarkable. There is no evidence of pleural disea se. The lungs are clear. The bony structures of the chest are intact without fracture. IMPRESSION: 1. No evidence of acute disease.
--- NOTE | 2025-03-08 15:07 | DVH ---
INDICATION: gallstones TECHNIQUE: Multiple real-time sonographic images were obtained of the right upper quadrant. COMPARISON: None FINDINGS: The liver demonstrates homogenous echotexture without focal mass lesions. The liver measure s 16cm. Intrahepatic ductal dilatation in the right hepatic lobe. The common duct measures 0.8 mm. Gallstones The gallbladder wall measures 0.3 mm and is within normal limits. The right kidney measures 11 cm. The right kidney is normal in contour, size, and shape. The echogen icity is normal. There is no hydronephrosis. The pancreas is not well visualized due to overlying bowel gas. IMPRESSION: Hepatic steatosis Intrahepatic ductal dilatation in the right hepatic lobe. Dilated CBD. MRCP suggested. Gall stones
[2025-03-09] VITALS (7 sets, daily range): BP systolic 131–173; BP diastolic 68–86; PULSE 76–97; RESP 16–20; TEMP 97.4–98.4; O2SAT 92–95
[2025-03-09 06:16] LABS: Basophils # (auto) 0 10 ^3/uL (0-0.2); Basophils % (auto) 0.1 % (0.0-2.0); Eosinophils # (auto) 0 10 ^3/uL (0-0.8); Eosinophils % (auto) 0.1 % (0.0-7.0); Hemoglobin 10.2 g/dL (12.2-16.2); Lymphocytes # (auto) 0.8 10 ^3/uL (0.4-5.4); Monocytes # (auto) 0.8 10 ^3/uL (0-1.3)
[2025-03-09 06:20] LABS: Hematocrit 33.1 % (36.0-46.0); Lymphocytes % (auto) 7.5 % (10.0-50.0); Mean Corpuscular Hemoglobin 19.7 pg (28.0-32.0); Mean Corpuscular Hgb Conc. 30.8 g/dL (32.0-36.0); Mean Corpuscular Volume 63.9 fL (80.0-100.0); Monocytes % (auto) 7.8 % (0.0-12.0); Neutrophils # (auto) 9.1 10 ^3/uL (1.6-8.6); Neutrophils % (auto) 84.5 % (37.0-80.0); Platelet Count (auto) 347 10^3/uL (140-450); Red Blood Cells 5.18 10^6/uL (4.0-5.20); White Blood Cell 10.8 10^3/uL (4.4-10.8)
[2025-03-09] MEDS: MAGNESIUM CITRATE SOLUTION 300 ML BTL PO ONE (06:24)
[2025-03-09 07:23] LABS: Anion Gap 13 (5-15)
[2025-03-09 07:29] LABS: BUN/Creatinine Ratio 20.5 (10.0-20.0); Blood Urea Nitrogen 9 mg/dL (9-23); Glucose 90 mg/dL (74-106)
[2025-03-09 07:30] LABS: Calcium 8.2 mg/dL (8.7-10.4); Carbon Dioxide 25 mmol/L (20-31); Chloride 101 mmol/L (98-107); Sodium 139 mmol/L (136-145)
[2025-03-09 08:04] LABS: Anisocytosis Marked; Hypochromia Marked; Platelet Estimate Adequate
[2025-03-09] MEDS: POTASSIUM CHL 20MEQ/100ML 100 ML IV ONE ×2 (08:19→14:00)
--- NOTE | 2025-03-09 11:41 | DVHPN2 ---
Progress Note Date Seen: Mar 09, 2025 Medical Necessity Reason Pt with a Central, PICC or Fol: No Subjective Patient reports: No new complaints Review of Systems: HEENT:Normal, CVS:Normal, RESPIRATORY:Normal, GI:Normal, :Normal, MSK:Normal, NEURO:Normal Objective vital signs Vital Sign Date Time Temp Pulse Resp B/P (MAP) Pulse Ox O2 Delivery O2 Flow Rate FiO2 03/09/25 09:00 97.4 76 20 131/74 (93) 95 97.4 03/09/25 08:00 Room Air* 0 21 Total Intake and Output 03/08/25 03/08/25 03/09/25 15:00 23:00 07:00 Intake Total 50 ml 1200 ml 2150 ml Balance 50 ml 1200 ml 2150 ml medications Current Medications Medications Dose Ordered Sig/Rut Route Start Time Stop Time Status Last Admin Dose Admin Acetaminophen/ Hydrocodone Bitart 1 tab Q4HP PRN PO 03/05/25 07:45 03/08/25 13:05 1 TAB Ondansetron HCl 4 mg Q4HP PRN IV 03/05/25 07:45 03/07/25 18:28 4 MG Acetaminophen 650 mg Q6HP PRN PO 03/05/25 07:45 Nitroglycerin 0.4 mg Q5MINP PRN SL 03/05/25 07:45 Morphine Sulfate 2 mg Q30M PRN IV 03/05/25 07:45 Cancel Morphine Sulfate 2 mg Q30M PRN IV 03/05/25 10:45 Pantoprazole Sodium 40 mg BID IV 03/05/25 22:00 03/09/25 10:48 40 MG Hydralazine HCl 10 mg Q6HP PRN IV 03/05/25 22:45 03/09/25 04:08 10 MG Ceftriaxone Sodium 50 ml @ 100 mls/hr DAILY@09 IV 03/08/25 09:00 03/09/25 09:00 100 MLS/HR Sodium Chloride 1,000 ml @ 100 mls/hr Q10H IV 03/08/25 13:45 03/09/25 09:45 100 MLS/HR Examination: GENERAL:Normal, HEENT:Normal, NECK:Normal, LUNGS:Normal, CVS:Normal, ABDOMEN:Normal, MSK:Normal, SKIN:Normal, NEURO:Normal, :Normal laboratory and microbiology Laboratory Tests 03/09/25 05:27 Test 03/09/25 05:27 Range/Units Serum Glucose 90 74-106 mg/dL Microbiology Date/Time Source Procedure Growth Status 03/07/25 16:53 Voided Urine Urine Culture - Final Complete Problem List/Assessment/Plan Problem List/Assessment/Plan #1 gi bleed/rectal thickening: colonoscopy today #2 anemia s/p transfusion #3 MS #4 htn #5 uti :iv rocephin #6 gallstones #7 pelvic lymphadenopathy #8 hypokalemia: replace, recheck advance care planning- full code- time spent 19 mins Plan discussed with: Patient My Orders My Orders Orders - ISAAC TAMEZ MD Procedure Category Date Status Time Sodium Chloride 0.9% PHA 03/08/25 In Process 13:45 LIVER US 03/08/25 Resulted 13:36 Chest Portable XY 03/08/25 Resulted 13:39 Dietary Evaluation Review Comments: 1) Initiate Ensure clear qd. Encourage optimal PO intake 2) Advance to low-fat diet when medically feasible, pending ECHO VASCULAR TECHNOLOGIST approval 3) Refer to outpatient RD for weight management 4) Follow-up with gastroenterology and neurology 5) Continue to monitor I&O, labs, and skin integrity Expected Outcomes/Goals: 1) appetite and labs to improve 2) diet to advance 2) f/u in 2-3 days Date of Service: Mar 09, 2025 Billing Provider: ISAAC TAMEZ MD Common Visit Codes: [id number] INP/OBS CARE(HIGH) Secondary Visit Codes: [id number] CARE PLAN 30 MINUTES ISAAC TAMEZ MD Mar 09, 2025 11:41
[2025-03-09] MEDS: POTASSIUM CHL 20MEQ/100ML 100 ML IV SCH ×2 (12:24→22:13)
[2025-03-09] MEDS ORDERED: POTASSIUM CHL 20MEQ/100ML 100 ML IV ONE (18:00)
[2025-03-09 18:03] LABS: Magnesium 2.1 mg/dL (1.6-2.6)
--- NOTE | 2025-03-09 20:35 | DVHPN2 ---
Progress Note - Dictate Date Seen: Mar 09, 2025 Medical Necessity Reason Pt with a Central, PICC or Fol: No Subjective No new complaints No further rectal bleeding Completed her bowel prep Colonoscopy was cancelled today because of low K 2.0- 2.1 ! Pt is very tearful and upset about the rescheduling vital signs Vital Sign Date Time Temp Pulse Resp B/P (MAP) Pulse Ox O2 Delivery O2 Flow Rate FiO2 03/09/25 17:00 98.1 97 20 173/68 (103) 94 98.1 03/09/25 08:00 Room Air* 0 21 Total Intake and Output 03/08/25 03/08/25 03/09/25 15:00 23:00 07:00 Intake Total 50 ml 1200 ml 2150 ml Balance 50 ml 1200 ml 2150 ml medications Current Medications Medications Dose Ordered Sig/Rut Route Start Time Stop Time Status Last Admin Dose Admin Acetaminophen/ Hydrocodone Bitart 1 tab Q4HP PRN PO 03/05/25 07:45 03/09/25 18:23 1 TAB Ondansetron HCl 4 mg Q4HP PRN IV 03/05/25 07:45 03/07/25 18:28 4 MG Acetaminophen 650 mg Q6HP PRN PO 03/05/25 07:45 Nitroglycerin 0.4 mg Q5MINP PRN SL 03/05/25 07:45 Morphine Sulfate 2 mg Q30M PRN IV 03/05/25 07:45 Cancel Morphine Sulfate 2 mg Q30M PRN IV 03/05/25 10:45 Pantoprazole Sodium 40 mg BID IV 03/05/25 22:00 03/09/25 10:48 40 MG Hydralazine HCl 10 mg Q6HP PRN IV 03/05/25 22:45 03/09/25 04:08 10 MG Ceftriaxone Sodium 50 ml @ 100 mls/hr DAILY@09 IV 03/08/25 09:00 03/09/25 09:00 100 MLS/HR Sodium Chloride 1,000 ml @ 100 mls/hr Q10H IV 03/08/25 13:45 03/09/25 09:45 100 MLS/HR Potassium Chloride 100 ml @ 50 mls/hr Q2H IV 03/09/25 20:15 03/10/25 04:14 objective General Appearance: Alert, Oriented X3, Cooperative, No acute distress, mild distress, moderate distress, severe distress, Other HEENT: Atraumatic Lungs: Clear to auscultation, Normal air movement, Other Cardiovascular: Regular rate, Normal S1, Normal S2, No murmurs, Gallops, Rubs, Other Abdomen: Normal bowel sounds, Soft, No tenderness, No hepatospenomegaly, No masses, Other Neuro: Normal gait, Normal speech laboratory and microbiology Laboratory Tests 03/09/25 17:32 03/09/25 05:27 Test 03/09/25 05:27 Range/Units Serum Glucose 90 74-106 mg/dL Problems(with codes): (1) Generalized weakness (2) Melena (3) Abnormal finding on GI tract imaging (4) Rectal bleeding (5) Anemia Prognosis PLAN Despite being given 80 meq of potassium her repeat potassium is still 2.0 We will transfuse another 80 meq of potassium overnight and also give her oral supplement Patient was given clear liquid diet She will be kept NPO after midnight Tentatively colonoscopy was rescheduled for tomorrow I gave her the option of resuming her diet and I could arrange this as an outpatient for her at [place] [place] However the patient wishes to stay and complete her procedure Dietary Evaluation Review Comments: 1) Initiate Ensure clear qd. Encourage optimal PO intake 2) Advance to low-fat diet when medically feasible, pending [employer] approval 3) Refer to outpatient RD for weight management 4) Follow-up with gastroenterology and neurology 5) Continue to monitor I&O, labs, and skin integrity Expected Outcomes/Goals: 1) appetite and labs to improve 2) diet to advance 2) f/u in 2-3 days Plan discussed with: Patient, Other (Nurse) MAL BUTLER MD Mar 09, 2025 20:35
[2025-03-10] VITALS (10 sets, daily range): BP systolic 137–179; BP diastolic 74–101; PULSE 72–97; RESP 18–20; TEMP 97.7–99.1; O2SAT 94–97
[2025-03-10 08:23] LABS: Basophils # (auto) 0 10 ^3/uL (0-0.2); Basophils % (auto) 0.3 % (0.0-2.0); Eosinophils # (auto) 0.1 10 ^3/uL (0-0.8); Eosinophils % (auto) 1.2 % (0.0-7.0); Hematocrit 33.3 % (36.0-46.0); Hemoglobin 10.3 g/dL (12.2-16.2); Lymphocytes # (auto) 0.8 10 ^3/uL (0.4-5.4); Lymphocytes % (auto) 9.2 % (10.0-50.0); Mean Corpuscular Hemoglobin 19.7 pg (28.0-32.0); Mean Corpuscular Hgb Conc. 30.9 g/dL (32.0-36.0); Monocytes % (auto) 11.9 % (0.0-12.0); Neutrophils # (auto) 6.8 10 ^3/uL (1.6-8.6); Neutrophils % (auto) 77.4 % (37.0-80.0); Platelet Count (auto) 336 10^3/uL (140-450); Red Blood Cells 5.21 10^6/uL (4.0-5.20); Red Cell Distribution Width 31.4 % (11.8-14.3); White Blood Cell 8.8 10^3/uL (4.4-10.8)
[2025-03-10 08:30] LABS: Chloride 104 mmol/L (98-107); Sodium 140 mmol/L (136-145)
[2025-03-10 08:31] LABS: Anion Gap 10 (5-15); Carbon Dioxide 26 mmol/L (20-31)
[2025-03-10 08:36] LABS: Glucose 93 mg/dL (74-106)
[2025-03-10 08:54] LABS: BUN/Creatinine Ratio 13.9 (10.0-20.0); Blood Urea Nitrogen < 5 mg/dL (9-23); Calcium 7.9 mg/dL (8.7-10.4)
[2025-03-10 08:55] LABS: Potassium 2.5 mmol/L (3.5-5.1)
[2025-03-10] MEDS ORDERED: NALOXONE HCL 0.4 MG/ML VIAL ONE (09:05)
[2025-03-10] MEDS ORDERED: FLUMAZENIL 0.1 MG/ML INJ 10ML MDV IV ONE (09:05)
[2025-03-10] MEDS ORDERED: SODIUM CHLORIDE LOCK 10 ML ONE (09:20)
[2025-03-10] MEDS ORDERED: SIMETHICONE 40 MG/0.6 ML ORAL DROP ONE (09:21)
--- NOTE | 2025-03-10 11:14 | DVHPN2 ---
Progress Note Date Seen: Mar 10, 2025 Medical Necessity Reason Pt with a Central, PICC or Fol: No Subjective Patient reports: No new complaints Review of Systems: HEENT:Normal, CVS:Normal, RESPIRATORY:Normal, GI:Normal, :Normal, MSK:Normal, NEURO:Normal Objective vital signs Vital Sign Date Time Temp Pulse Resp B/P (MAP) Pulse Ox O2 Delivery O2 Flow Rate FiO2 03/10/25 09:01 177/84 03/10/25 09:00 97.7 78 18 94 97.7 03/10/25 08:00 Room Air* 0 21 Total Intake and Output 03/09/25 03/09/25 03/10/25 15:00 23:00 07:00 Intake Total 200 ml 1224 ml 1035 ml Balance 200 ml 1224 ml 1035 ml medications Current Medications Medications Dose Ordered Sig/Rut Route Start Time Stop Time Status Last Admin Dose Admin Acetaminophen/ Hydrocodone Bitart 1 tab Q4HP PRN PO 03/05/25 07:45 03/09/25 18:23 1 TAB Ondansetron HCl 4 mg Q4HP PRN IV 03/05/25 07:45 03/07/25 18:28 4 MG Acetaminophen 650 mg Q6HP PRN PO 03/05/25 07:45 Nitroglycerin 0.4 mg Q5MINP PRN SL 03/05/25 07:45 Morphine Sulfate 2 mg Q30M PRN IV 03/05/25 07:45 Cancel Morphine Sulfate 2 mg Q30M PRN IV 03/05/25 10:45 Pantoprazole Sodium 40 mg BID IV 03/05/25 22:00 03/10/25 09:01 40 MG Hydralazine HCl 10 mg Q6HP PRN IV 03/05/25 22:45 03/10/25 09:01 10 MG Ceftriaxone Sodium 50 ml @ 100 mls/hr DAILY@09 IV 03/08/25 09:00 03/10/25 09:00 100 MLS/HR Sodium Chloride 1,000 ml @ 100 mls/hr Q10H IV 03/08/25 13:45 03/09/25 22:13 100 MLS/HR Examination: GENERAL:Normal, HEENT:Normal, NECK:Normal, LUNGS:Normal, CVS:Normal, ABDOMEN:Normal, MSK:Normal, SKIN:Normal, NEURO:Normal, :Normal laboratory and microbiology Laboratory Tests 03/10/25 08:07 Test 03/10/25 08:07 Range/Units Serum Glucose 93 74-106 mg/dL Microbiology Date/Time Source Procedure Growth Status 03/07/25 16:53 Voided Urine Urine Culture - Final Complete Problem List/Assessment/Plan Problem List/Assessment/Plan #1 gi bleed/rectal thickening: colonoscopy #2 anemia s/p transfusion #3 MS #4 htn #5 uti :iv rocephin #6 gallstones #7 pelvic lymphadenopathy #8 hypokalemia: replace, recheck advance care planning- full code- time spent 19 mins Plan discussed with: Patient My Orders My Orders Orders - ISAAC TAMEZ MD Procedure Category Date Status Time Potassium Chl Sj PHA 03/10/25 Transmitted KCL 11:15 Potassium LAB 03/10/25 Transmitted 17:00 Dietary Evaluation Review Comments: 1) Initiate Ensure clear qd. Encourage optimal PO intake 2) Advance to low-fat diet when medically feasible, pending PARARESC[employer] CRAFTSMAN approval 3) Refer to outpatient RD for weight management 4) Follow-up with gastroenterology and neurology 5) Continue to monitor I&O, labs, and skin integrity Expected Outcomes/Goals: 1) appetite and labs to improve 2) diet to advance 2) f/u in 2-3 days Date of Service: Mar 10, 2025 Billing Provider: ISAAC TAMEZ MD Common Visit Codes: [id number] INP/OBS CARE(HIGH) ISAAC TAMEZ MD Mar 10, 2025 11:14
[2025-03-10] MEDS: POTASSIUM CHLORIDE 80 MEQ, LIDOCAINE 1% (LOCAL ANESTH.) 6 ML in SODIUM CHL 0.9% 500 ML IV ONE (11:15)
[2025-03-10] MEDS: fentaNYL CITRATE 100 MCG/2 ML VL ONE (17:52)
[2025-03-10] MEDS: diphenhdrAMINE HCL 50 MG/1 ML VL ONE (17:52)
[2025-03-10] MEDS: MIDAZOLAM HCL 5 MG/ML-1ML VIAL ONE (17:52)
--- NOTE | 2025-03-10 18:23 | DVHOP2 ---
Operative Report DATE OF OPERATION: 03/10/25 PROCEDURE: Colonoscopy with cold biopsy PREOPERATIVE INDICATION: The patient is a 69 -year-old female undergoing colonoscopy for rectal bleeding constipation and abnormal finding GI tract imaging POSTOPERATIVE DIAGNOSES: 1. Patient had a partially circumferential area of ulceration in the rectum which appeared to be consistent with stercoral rectal ulceration from fecal impaction from which biopsies were obtained 2. Patient had a long tortuous and redundant colon ; no polyps or masses were seen 3. Two slightly limited study due to poor prep however after irrigation aspiration was grossly completely normal colonoscopy examination up to the cecum PROCEDURE PERFORMED BY: Mal Barry M.D. SCOPE: Olympus videocolonoscope. ASA CLASS: 3. PREOPERATIVE MEDICATIONS: Versed 3 mg, Fentanyl 75 mcg, Benadryl 50 mg PROCEDURE IN DETAIL: After obtaining an informed consent, the patient was placed on left lateral decubitus position. She was then sedated with the above medications. A rectal examination was performed that was normal. The colonoscope was then passed through the anus into the rectosigmoid and through the descending, transverse, and ascending colon up to the cecum with visualization of the appendiceal orifice, base of the cecum and the ileocecal valve. The colonoscope was then withdrawn. No polyps or masses were seen. There was no clear-cut diverticular disease. Patient had a slightly limited study due to poor prep however after careful irrigation aspiration no other gross lesions were seen. Patient had a long tortuous and redundant colon Patient did have an partially circumferential area of inflammation ulceration in the rectum which appeared to be stercoral ulceration from fecal impaction Biopsies were obtained from this area. On retroflexion patient had trace to 1+ internal hemorrhoids The patient tolerated the procedure well without difficulty. WITHDRAWAL TIME: 14 minutes QUALITY OF THE PREP: [place] Bowel Prep score: 7 COMPLICATIONS : None SPECIMENS: Rectal ulcer biopsy DISPOSITION: Transfer to floor Stable PLAN: 1. Repeat colonoscopy base on biopsy result likely in 5 years 2. Resume GI soft diet advance as tolerated 3. Increase fluid and fiber intake 4. Avoid constipation with stool softeners fiber probiotics and increase water etc. 5. Outpatient follow up with me in 4-6 weeks to review results and discuss further management MAL BARRY MD Mar 10, 2025 18:23
[2025-03-11] VITALS (8 sets, daily range): BP systolic 111–153; BP diastolic 50–92; PULSE 57–108; RESP 16–18; TEMP 97.8–99.3; O2SAT 96–99
[2025-03-11] MEDS: POTASSIUM CHL 20 Meq TABLET PO ONE ×2 (05:58→17:26)
[2025-03-11 06:36] LABS: Chloride 107 mmol/L (98-107); Sodium 142 mmol/L (136-145)
[2025-03-11 06:37] LABS: Anion Gap 8 (5-15); Carbon Dioxide 27 mmol/L (20-31)
[2025-03-11 06:42] LABS: Glucose 98 mg/dL (74-106)
[2025-03-11 06:43] LABS: Blood Urea Nitrogen 6 mg/dL (9-23); Calcium 8.7 mg/dL (8.7-10.4); Magnesium 1.9 mg/dL (1.6-2.6); Potassium 2.7 mmol/L (3.5-5.1)
[2025-03-11] MEDS ORDERED: LORazepam 2MG/ML-1ML VIAL IV ONE (16:15)
--- NOTE | 2025-03-11 16:19 | DVHPN2 ---
Progress Note Date Seen: Mar 11, 2025 Medical Necessity Reason Pt with a Central, PICC or Fol: No Subjective Patient reports: No new complaints Review of Systems: HEENT:Normal, CVS:Normal, RESPIRATORY:Normal, GI:Normal, :Normal, MSK:Normal, NEURO:Normal Objective vital signs Vital Sign Date Time Temp Pulse Resp B/P (MAP) Pulse Ox O2 Delivery O2 Flow Rate FiO2 03/11/25 13:00 98.4 102 16 122/50 (74) 96 98.4 03/11/25 08:00 Room Air* 0 21 Total Intake and Output 03/10/25 03/10/25 03/11/25 15:00 23:00 07:00 Intake Total 50 ml 440 ml Balance 50 ml 440 ml medications Current Medications Medications Dose Ordered Sig/Rut Route Start Time Stop Time Status Last Admin Dose Admin Acetaminophen/ Hydrocodone Bitart 1 tab Q4HP PRN PO 03/05/25 07:45 03/11/25 10:59 1 TAB Ondansetron HCl 4 mg Q4HP PRN IV 03/05/25 07:45 03/07/25 18:28 4 MG Acetaminophen 650 mg Q6HP PRN PO 03/05/25 07:45 Nitroglycerin 0.4 mg Q5MINP PRN SL 03/05/25 07:45 Morphine Sulfate 2 mg Q30M PRN IV 03/05/25 07:45 Cancel Morphine Sulfate 2 mg Q30M PRN IV 03/05/25 10:45 Pantoprazole Sodium 40 mg BID IV 03/05/25 22:00 03/11/25 09:03 40 MG Hydralazine HCl 10 mg Q6HP PRN IV 03/05/25 22:45 03/11/25 06:00 10 MG Ceftriaxone Sodium 50 ml @ 100 mls/hr DAILY@09 IV 03/08/25 09:00 03/11/25 09:02 100 MLS/HR Sodium Chloride 1,000 ml @ 100 mls/hr Q10H IV 03/08/25 13:45 03/11/25 00:25 100 MLS/HR Examination: GENERAL:Normal, HEENT:Normal, NECK:Normal, LUNGS:Normal, CVS:Normal, ABDOMEN:Normal, MSK:Normal, SKIN:Normal, NEURO:Normal, :Normal laboratory and microbiology Laboratory Tests 03/11/25 05:50 03/10/25 08:07 Test 03/11/25 05:50 Range/Units Serum Glucose 98 74-106 mg/dL Microbiology Date/Time Source Procedure Growth Status 03/07/25 16:53 Voided Urine Urine Culture - Final Complete Problem List/Assessment/Plan Problem List/Assessment/Plan #1 gi bleed/rectal thickening: stercoral ulcer s/p biopsy #2 anemia s/p transfusion #3 MS #4 htn #5 uti :iv rocephin #6 gallstones with cbd dilatation: mrcp #7 pelvic lymphadenopathy #8 hypokalemia: replace, recheck advance care planning- full code- time spent 19 mins Plan discussed with: Patient My Orders My Orders Orders - ISAAC TAMEZ MD Procedure Category Date Status Time Potassium Er Tablet PHA 03/11/25 Transmitted (Klor-Con Tablet) 16:15 Potassium Chl Sj PHA 03/11/25 Transmitted KCL 16:15 Magnesium Sj PHA 03/11/25 Transmitted 17:00 Mrcp Mri MRI 03/11/25 Transmitted 16:14 Lorazepam 2mg/Ml Inj PHA 03/11/25 Transmitted (Ativan Inj) 16:15 Complete Blood Count LAB 03/12/25 Verified 06:00 Comprehensive LAB 03/12/25 Verified Metabolic Panel 06:00 Magnesium LAB 03/12/25 Verified 05:00 Dietary Evaluation Review Comments: 1) Initiate Ensure clear qd. Encourage optimal PO intake 2) Advance to low-fat diet when medically feasible, pending STATION OPERATOR approval 3) Refer to outpatient RD for weight management 4) Follow-up with gastroenterology and neurology 5) Continue to monitor I&O, labs, and skin integrity Expected Outcomes/Goals: 1) appetite and labs to improve 2) diet to advance 2) f/u in 2-3 days Date of Service: Mar 11, 2025 Billing Provider: ISAAC TAMEZ MD Common Visit Codes: [id number] INP/OBS CARE(HIGH) ISAAC TAMEZ MD Mar 11, 2025 16:19
[2025-03-11] MEDS: POTASSIUM CHLORIDE 60 MEQ, LIDOCAINE 1% (LOCAL ANESTH.) 6 ML in SODIUM CHL 0.9% 500 ML IV ONE (17:37)
[2025-03-11] MEDS: MAGNESIUM SULFATE 1GM/100ML 100 ML IV SCH (17:41)
--- NOTE | 2025-03-11 22:50 | DVHPN2 ---
Progress Note - Dictate Date Seen: Mar 11, 2025 Medical Necessity Reason Pt with a Central, PICC or Fol: No Subjective No new complaints No further rectal bleeding Stercoral ulceration of rectum found on colonoscopy continues to have low potassium levels vital signs Vital Sign Date Time Temp Pulse Resp B/P (MAP) Pulse Ox O2 Delivery O2 Flow Rate FiO2 03/11/25 16:41 98.7 101 16 111/67 (82) 97 98.7 03/11/25 08:00 Room Air* 0 21 Total Intake and Output 03/10/25 03/10/25 03/11/25 15:00 23:00 07:00 Intake Total 50 ml 440 ml Balance 50 ml 440 ml medications Current Medications Medications Dose Ordered Sig/Rut Route Start Time Stop Time Status Last Admin Dose Admin Acetaminophen/ Hydrocodone Bitart 1 tab Q4HP PRN PO 03/05/25 07:45 03/11/25 10:59 1 TAB Ondansetron HCl 4 mg Q4HP PRN IV 03/05/25 07:45 03/07/25 18:28 4 MG Acetaminophen 650 mg Q6HP PRN PO 03/05/25 07:45 Nitroglycerin 0.4 mg Q5MINP PRN SL 03/05/25 07:45 Morphine Sulfate 2 mg Q30M PRN IV 03/05/25 07:45 Cancel Morphine Sulfate 2 mg Q30M PRN IV 03/05/25 10:45 Pantoprazole Sodium 40 mg BID IV 03/05/25 22:00 03/11/25 21:30 40 MG Hydralazine HCl 10 mg Q6HP PRN IV 03/05/25 22:45 03/11/25 06:00 10 MG Ceftriaxone Sodium 50 ml @ 100 mls/hr DAILY@09 IV 03/08/25 09:00 03/11/25 09:02 100 MLS/HR Sodium Chloride 1,000 ml @ 100 mls/hr Q10H IV 03/08/25 13:45 03/11/25 21:30 100 MLS/HR objective General Appearance: Alert, Oriented X3, Cooperative, No acute distress, mild distress, moderate distress, severe distress, Other HEENT: Atraumatic Lungs: Clear to auscultation, Normal air movement, Other Cardiovascular: Regular rate, Normal S1, Normal S2, No murmurs, Gallops, Rubs, Other Abdomen: Normal bowel sounds, Soft, No tenderness, No hepatospenomegaly, No masses, Other Neuro: Normal gait, Normal speech laboratory and microbiology Laboratory Tests 03/11/25 05:50 03/10/25 08:07 Test 03/11/25 05:50 Range/Units Serum Glucose 98 74-106 mg/dL Problems(with codes): (1) Hypokalemia (2) Rectal bleeding (3) Anemia (4) Generalized weakness (5) Abnormal finding on GI tract imaging Prognosis Plan Replace potassium Advance diet as tolerated Continue supportive care Patient will likely need to be maintained on Colace and MiraLax as an outpatient I will follow up with her in my office as an outpatient upon discharge Dietary Evaluation Review Comments: 1) Initiate Ensure clear qd. Encourage optimal PO intake 2) Advance to low-fat diet when medically feasible, pending DEMAND EQUIPMENT REPAIRER approval 3) Refer to outpatient RD for weight management 4) Follow-up with gastroenterology and neurology 5) Continue to monitor I&O, labs, and skin integrity Expected Outcomes/Goals: 1) appetite and labs to improve 2) diet to advance 2) f/u in 2-3 days Plan discussed with: Other (None) MAL BUTLER MD Mar 11, 2025 22:50
[2025-03-12] VITALS (9 sets, daily range): BP systolic 131–155; BP diastolic 74–89; PULSE 77–98; RESP 17–18; TEMP 98.2–99.1; O2SAT 96–98
[2025-03-12 05:27] LABS: Basophils # (auto) 0 10 ^3/uL (0-0.2); Hemoglobin 9.8 g/dL (12.2-16.2); Lymphocytes # (auto) 1.2 10 ^3/uL (0.4-5.4); White Blood Cell 7.2 10^3/uL (4.4-10.8)
[2025-03-12 05:34] LABS: Basophils % (auto) 0.5 % (0.0-2.0); Eosinophils # (auto) 0.2 10 ^3/uL (0-0.8); Eosinophils % (auto) 3.4 % (0.0-7.0); Hematocrit 32.5 % (36.0-46.0); Mean Corpuscular Hemoglobin 19.6 pg (28.0-32.0); Mean Corpuscular Hgb Conc. 30.2 g/dL (32.0-36.0); Mean Corpuscular Volume 64.9 fL (80.0-100.0); Monocytes # (auto) 0.8 10 ^3/uL (0-1.3); Monocytes % (auto) 10.6 % (0.0-12.0); Neutrophils % (auto) 69.5 % (37.0-80.0); Platelet Count (auto) 314 10^3/uL (140-450); Red Blood Cells 5.01 10^6/uL (4.0-5.20); Red Cell Distribution Width 31.2 % (11.8-14.3)
[2025-03-12 06:14] LABS: Albumin 3.3 g/dL (3.2-4.8); Alkaline Phosphatase 73 U/L (46-116); Anion Gap 7 (5-15); BUN/Creatinine Ratio 16.1 (10.0-20.0); Blood Urea Nitrogen 9 mg/dL (9-23); Carbon Dioxide 27 mmol/L (20-31); Sodium 144 mmol/L (136-145); Total Protein 5.9 g/dL (5.7-8.2)
[2025-03-12 06:15] LABS: Bilirubin, Total 0.3 mg/dL (0.2-1.0)
[2025-03-12 06:16] LABS: Alanine Aminotransferase < 9 U/L (7-40); Aspartate Aminotransferase 8 U/L (13-40); Calcium 8.7 mg/dL (8.7-10.4); Chloride 110 mmol/L (98-107); Glucose 129 mg/dL (74-106)
[2025-03-12 06:40] LABS: Anisocytosis Moderate; Hypochromia Moderate; Ovalocytes FEW; Platelet Estimate Adequate
--- NOTE | 2025-03-12 11:41 | DVHPN2 ---
Progress Note - Dictate Date Seen: Mar 12, 2025 Medical Necessity Reason Pt with a Central, PICC or Fol: No Subjective No new complaints No further rectal bleeding Stercoral ulceration of rectum found on colonoscopy Potassium level normalized to 3.8 and four Patient complains of some weakness vital signs Vital Sign Date Time Temp Pulse Resp B/P (MAP) Pulse Ox O2 Delivery O2 Flow Rate FiO2 03/12/25 09:00 98.2 78 17 136/79 (98) 96 98.2 03/12/25 08:05 Room Air* 0 21 Total Intake and Output 03/11/25 03/11/25 03/12/25 15:00 23:00 07:00 Intake Total 50 ml 350 ml 800 ml Balance 50 ml 350 ml 800 ml medications Current Medications Medications Dose Ordered Sig/Rut Route Start Time Stop Time Status Last Admin Dose Admin Acetaminophen/ Hydrocodone Bitart 1 tab Q4HP PRN PO 03/05/25 07:45 03/11/25 10:59 1 TAB Ondansetron HCl 4 mg Q4HP PRN IV 03/05/25 07:45 03/07/25 18:28 4 MG Acetaminophen 650 mg Q6HP PRN PO 03/05/25 07:45 Nitroglycerin 0.4 mg Q5MINP PRN SL 03/05/25 07:45 Morphine Sulfate 2 mg Q30M PRN IV 03/05/25 07:45 Cancel Morphine Sulfate 2 mg Q30M PRN IV 03/05/25 10:45 Pantoprazole Sodium 40 mg BID IV 03/05/25 22:00 03/12/25 09:02 40 MG Hydralazine HCl 10 mg Q6HP PRN IV 03/05/25 22:45 03/12/25 05:57 10 MG Ceftriaxone Sodium 50 ml @ 100 mls/hr DAILY@09 IV 03/08/25 09:00 03/12/25 09:02 100 MLS/HR Sodium Chloride 1,000 ml @ 100 mls/hr Q10H IV 03/08/25 13:45 03/12/25 09:02 100 MLS/HR objective General Appearance: Alert, Oriented X3, Cooperative, No acute distress, mild distress, moderate distress, severe distress, Other HEENT: Atraumatic Lungs: Clear to auscultation, Normal air movement, Other Cardiovascular: Regular rate, Normal S1, Normal S2, No murmurs, Gallops, Rubs, Other Abdomen: Normal bowel sounds, Soft, No tenderness, No hepatospenomegaly, No masses, Other Neuro: Normal gait, Normal speech laboratory and microbiology Laboratory Tests 03/12/25 05:06 Test 03/12/25 05:06 Range/Units Serum Glucose 129 H 74-106 mg/dL Problems(with codes): (1) Hypokalemia (2) Rectal bleeding (3) Anemia (4) Abnormal finding on GI tract imaging (5) Generalized weakness (6) Melena Prognosis Plan Physical therapy consult was requested as per patient's request Discontinue IV or Hep-Lock IV Ambulate patient Assess for discharge and discharge planning Patient was told to follow up in my office in bar stool in 2-4 weeks Stool softeners daily and MiraLax as needed for constipation Dietary Evaluation Review Comments: 1) Initiate Ensure clear qd. Encourage optimal PO intake 2) Advance to low-fat diet when medically feasible, pending COMBINATION MACHINE TOOL OPERATOR approval 3) Refer to outpatient RD for weight management 4) Follow-up with gastroenterology and neurology 5) Continue to monitor I&O, labs, and skin integrity Expected Outcomes/Goals: 1) appetite and labs to improve 2) diet to advance 2) f/u in 2-3 days Plan discussed with: Patient, Other (Nurse) MAL BUTLER MD Mar 12, 2025 11:41
--- NOTE | 2025-03-12 18:03 | DVHPN2 ---
Subjective in bed resting Reviewed: Care Plan, H&P, Labs, Medications Changes from previous H/P or p: No Changes General: Per HPI Gastrointestinal: Abdominal Pain, Melena Objective Vitals Vital Signs Date Time Temp Pulse Resp B/P (MAP) Pulse Ox O2 Delivery O2 Flow Rate FiO2 03/12/25 13:00 99.1 98 18 143/85 (104) 98 99.1 03/12/25 08:05 Room Air* 0 21 Intake/Output Intake and Output 03/12/25 07:00 Intake Total 1200 ml Balance 1200 ml Intake Oral 1150 ml IV Total 50 ml # Voids 4 General Appearance: Alert, Oriented X3, Cooperative, No acute distress, mild distress, moderate distress, severe distress, Other HEENT: Atraumatic Lungs: Clear to auscultation, Normal air movement, Other Cardiovascular: Regular rate, Normal S1, Normal S2, No murmurs, Gallops, Rubs, Other Abdomen: Normal bowel sounds, Soft, No tenderness, No hepatospenomegaly, No masses, Other Neuro: Normal gait, Normal speech Medications Current Medications Medications Dose Ordered Sig/Rut Route Start Time Stop Time Status Last Admin Dose Admin Acetaminophen/ Hydrocodone Bitart 1 tab Q4HP PRN PO 03/05/25 07:45 03/11/25 10:59 1 TAB Ondansetron HCl 4 mg Q4HP PRN IV 03/05/25 07:45 03/07/25 18:28 4 MG Acetaminophen 650 mg Q6HP PRN PO 03/05/25 07:45 Nitroglycerin 0.4 mg Q5MINP PRN SL 03/05/25 07:45 Morphine Sulfate 2 mg Q30M PRN IV 03/05/25 07:45 Cancel Morphine Sulfate 2 mg Q30M PRN IV 03/05/25 10:45 Pantoprazole Sodium 40 mg BID IV 03/05/25 22:00 03/12/25 09:02 40 MG Hydralazine HCl 10 mg Q6HP PRN IV 03/05/25 22:45 03/12/25 05:57 10 MG Ceftriaxone Sodium 50 ml @ 100 mls/hr DAILY@09 IV 03/08/25 09:00 03/12/25 09:02 100 MLS/HR Sodium Chloride 1,000 ml @ 100 mls/hr Q10H IV 03/08/25 13:45 03/12/25 09:02 100 MLS/HR Laboratory Results Laboratory Tests 03/12/25 05:06 Chemistry Test 03/12/25 05:06 Albumin 3.3 g/dL (3.2-4.8) Calcium Level 8.7 mg/dL (8.7-10.4) Magnesium Level 2.0 mg/dL (1.6-2.6) Total Protein 5.9 g/dL (5.7-8.2) LFT Test 03/12/25 05:06 Alanine Aminotransferase (ALT) < 9 U/L (7-40) Alkaline Phosphatase 73 U/L (46-116) Aspartate Amino Transferase (AST) 8 U/L (13-40) L Total Bilirubin 0.3 mg/dL (0.2-1.0) Urinalysis Test 03/05/25 11:00 Urine Color Colorless (Yellow) Urine Clarity Turbid (Clear) H Urine pH 7.5 (5.0-9.0) Urine Specific [place] 1.008 (1.001-1.035) Urine Protein Negative (Negative) Urine Ketones Negative (Negative) Urine Blood Negative /uL (Negative) Urine Nitrite 1+ (Negative) H Urine Bilirubin Negative (Negative) Urine Urobilinogen Normal mg/dL (Negative) Urine Leukocyte Esterase 3+ /uL (Negative) Urine RBC 1 /hpf (0 - 4) Urine Microscopic WBC 21 /HPF (0-5) H Urine Squamous Epithelial Cells None seen /hpf (<5) Urine Bacteria Few /hpf (None Seen) H Urine Glucose Normal mg/dL (Normal) Microbiology Microbiology Date/Time Source Procedure Growth Status 03/07/25 16:53 Voided Urine Urine Culture - Final Complete Assessment/Plan Assessment/Plan #1 gi bleed/rectal thickening: stercoral ulcer s/p biopsy #2 anemia s/p transfusion HB stable now #3 MS #4 htn #5 uti :iv rocephin #6 gallstones with cbd dilatation: mrcp #7 pelvic lymphadenopathy #8 hypokalemia: replaced and back to normal today Plan discussed with: Patient Date of Service: Mar 12, 2025 Billing Provider: EKATERINA ANAND MD Common Visit Codes: [id number] INP/OBS CARE(HIGH) EKATERINA ANAND MD Mar 12, 2025 18:03
[2025-03-13] VITALS (9 sets, daily range): BP systolic 142–180; BP diastolic 72–93; PULSE 72–100; RESP 15–18; TEMP 97.8–98.7; O2SAT 94–98
[2025-03-13] MEDS: amLODIPine BESYLATE 5 MG TAB PO ONE (12:27)
--- NOTE | 2025-03-13 17:09 | DVHPN2 ---
Subjective in bed resting Reviewed: Care Plan, H&P, Labs, Medications Changes from previous H/P or p: No Changes General: Per HPI Gastrointestinal: Abdominal Pain, Melena Objective Vitals Vital Signs Date Time Temp Pulse Resp B/P (MAP) Pulse Ox O2 Delivery O2 Flow Rate FiO2 03/13/25 17:00 98.0 87 15 156/72 (100) 94 98.0 03/13/25 08:00 Room Air* 0 21 Intake/Output Intake and Output 03/13/25 07:00 Intake Total 3225 ml Balance 3225 ml Intake Oral 1225 ml IV Total 2000 ml # Voids 7 # Bowel Movements 1 General Appearance: Alert, Oriented X3, Cooperative, No acute distress, mild distress, moderate distress, severe distress, Other HEENT: Atraumatic Lungs: Clear to auscultation, Normal air movement, Other Cardiovascular: Regular rate, Normal S1, Normal S2, No murmurs, Gallops, Rubs, Other Abdomen: Normal bowel sounds, Soft, No tenderness, No hepatospenomegaly, No masses, Other Neuro: Normal gait, Normal speech Medications Current Medications Medications Dose Ordered Sig/Rut Route Start Time Stop Time Status Last Admin Dose Admin Acetaminophen/ Hydrocodone Bitart 1 tab Q4HP PRN PO 03/05/25 07:45 03/11/25 10:59 1 TAB Ondansetron HCl 4 mg Q4HP PRN IV 03/05/25 07:45 03/07/25 18:28 4 MG Acetaminophen 650 mg Q6HP PRN PO 03/05/25 07:45 Nitroglycerin 0.4 mg Q5MINP PRN SL 03/05/25 07:45 Morphine Sulfate 2 mg Q30M PRN IV 03/05/25 07:45 Cancel Morphine Sulfate 2 mg Q30M PRN IV 03/05/25 10:45 Pantoprazole Sodium 40 mg BID IV 03/05/25 22:00 03/13/25 11:58 40 MG Hydralazine HCl 10 mg Q6HP PRN IV 03/05/25 22:45 03/12/25 05:57 10 MG Ceftriaxone Sodium 50 ml @ 100 mls/hr DAILY@09 IV 03/08/25 09:00 03/13/25 11:57 100 MLS/HR Sodium Chloride 1,000 ml @ 100 mls/hr Q10H IV 03/08/25 13:45 03/13/25 14:09 100 MLS/HR Amlodipine Besylate 5 mg DAILY PO 03/14/25 10:00 Laboratory Results Laboratory Tests 03/12/25 05:06 Urinalysis Test 03/05/25 11:00 Urine Color Colorless (Yellow) Urine Clarity Turbid (Clear) H Urine pH 7.5 (5.0-9.0) Urine Specific [place] 1.008 (1.001-1.035) Urine Protein Negative (Negative) Urine Ketones Negative (Negative) Urine Blood Negative /uL (Negative) Urine Nitrite 1+ (Negative) H Urine Bilirubin Negative (Negative) Urine Urobilinogen Normal mg/dL (Negative) Urine Leukocyte Esterase 3+ /uL (Negative) Urine RBC 1 /hpf (0 - 4) Urine Microscopic WBC 21 /HPF (0-5) H Urine Squamous Epithelial Cells None seen /hpf (<5) Urine Bacteria Few /hpf (None Seen) H Urine Glucose Normal mg/dL (Normal) Microbiology Microbiology Date/Time Source Procedure Growth Status 03/07/25 16:53 Voided Urine Urine Culture - Final Complete Assessment/Plan Assessment/Plan #1 gi bleed/rectal thickening: stercoral ulcer s/p biopsy #2 anemia s/p transfusion HB stable now #3 MS #4 htn #5 uti :iv rocephin #6 gallstones with cbd dilatation: mrcp #7 pelvic lymphadenopathy #8 hypokalemia: replaced and back to normal 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
[2025-03-14] VITALS (8 sets, daily range): BP systolic 116–158; BP diastolic 68–97; PULSE 71–114; RESP 17–20; TEMP 98–99.1; O2SAT 95–97
[2025-03-14] MEDS: amLODIPine BESYLATE 5 MG TAB PO SCH (09:34)
[2025-03-14] MEDS ORDERED: AML5T PO (14:14)
--- NOTE | 2025-03-14 19:23 | DVHPN2 ---
Subjective in bed resting Reviewed: Care Plan, H&P, Labs, Medications Changes from previous H/P or p: No Changes General: Per HPI Gastrointestinal: Abdominal Pain, Melena Objective Vitals Vital Signs Date Time Temp Pulse Resp B/P (MAP) Pulse Ox O2 Delivery O2 Flow Rate FiO2 03/14/25 17:00 99.1 100 20 125/68 (87) 95 99.1 03/14/25 08:20 Room Air* 0 21 Intake/Output Intake and Output 03/14/25 07:00 Intake Total 2990 ml Balance 2990 ml Intake Oral 1940 ml IV Total 1050 ml # Voids 8 General Appearance: Alert, Oriented X3, Cooperative, No acute distress, mild distress, moderate distress, severe distress, Other HEENT: Atraumatic Lungs: Clear to auscultation, Normal air movement, Other Cardiovascular: Regular rate, Normal S1, Normal S2, No murmurs, Gallops, Rubs, Other Abdomen: Normal bowel sounds, Soft, No tenderness, No hepatospenomegaly, No masses, Other Neuro: Normal gait, Normal speech Medications Current Medications Medications Dose Ordered Sig/Rut Route Start Time Stop Time Status Last Admin Dose Admin Ondansetron HCl 4 mg Q4HP PRN IV 03/05/25 07:45 03/07/25 18:28 4 MG Acetaminophen 650 mg Q6HP PRN PO 03/05/25 07:45 Nitroglycerin 0.4 mg Q5MINP PRN SL 03/05/25 07:45 Morphine Sulfate 2 mg Q30M PRN IV 03/05/25 07:45 Cancel Pantoprazole Sodium 40 mg BID IV 03/05/25 22:00 03/14/25 09:34 40 MG Hydralazine HCl 10 mg Q6HP PRN IV 03/05/25 22:45 03/14/25 04:34 10 MG Ceftriaxone Sodium 50 ml @ 100 mls/hr DAILY@09 IV 03/08/25 09:00 03/14/25 09:00 100 MLS/HR Sodium Chloride 1,000 ml @ 100 mls/hr Q10H IV 03/08/25 13:45 03/14/25 00:36 100 MLS/HR Amlodipine Besylate 5 mg DAILY PO 03/14/25 10:00 03/14/25 09:34 5 MG Laboratory Results Laboratory Tests 03/12/25 05:06 Urinalysis Test 03/05/25 11:00 Urine Color Colorless (Yellow) Urine Clarity Turbid (Clear) H Urine pH 7.5 (5.0-9.0) Urine Specific [place] 1.008 (1.001-1.035) Urine Protein Negative (Negative) Urine Ketones Negative (Negative) Urine Blood Negative /uL (Negative) Urine Nitrite 1+ (Negative) H Urine Bilirubin Negative (Negative) Urine Urobilinogen Normal mg/dL (Negative) Urine Leukocyte Esterase 3+ /uL (Negative) Urine RBC 1 /hpf (0 - 4) Urine Microscopic WBC 21 /HPF (0-5) H Urine Squamous Epithelial Cells None seen /hpf (<5) Urine Bacteria Few /hpf (None Seen) H Urine Glucose Normal mg/dL (Normal) Microbiology Microbiology Date/Time Source Procedure Growth Status 03/07/25 16:53 Voided Urine Urine Culture - Final Complete Assessment/Plan Assessment/Plan #1 gi bleed/rectal thickening: stercoral ulcer s/p biopsy #2 anemia s/p transfusion HB stable now #3 MS #4 htn #5 uti :iv rocephin #6 gallstones with cbd dilatation: mrcp #7 pelvic lymphadenopathy #8 hypokalemia: replaced and back to normal 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
[2025-03-14] MEDS: ACETAMINOPHEN 325 MG TAB PO PRN (19:50)
[2025-03-15] VITALS (8 sets, daily range): BP systolic 125–168; BP diastolic 70–94; PULSE 67–91; RESP 16–20; TEMP 97.2–98.4; O2SAT 92–98
--- NOTE | 2025-03-15 12:04 | DVHPN2 ---
Progress Note Date Seen: Mar 15, 2025 Medical Necessity Reason Pt with a Central, PICC or Fol: No Subjective Patient reports: No new complaints Review of Systems: HEENT:Normal, CVS:Normal, RESPIRATORY:Normal, GI:Normal, :Normal, MSK:Normal, NEURO:Normal Objective vital signs Vital Sign Date Time Temp Pulse Resp B/P (MAP) Pulse Ox O2 Delivery O2 Flow Rate FiO2 03/15/25 10:13 168/78 03/15/25 09:00 97.9 71 18 96 97.9 03/15/25 08:00 Room Air* 0 21 Total Intake and Output 03/14/25 03/14/25 03/15/25 15:00 23:00 07:00 Intake Total 50 ml 640 ml 1080 ml Output Total 400 ml Balance 50 ml 240 ml 1080 ml medications Current Medications Medications Dose Ordered Sig/Rut Route Start Time Stop Time Status Last Admin Dose Admin Ondansetron HCl 4 mg Q4HP PRN IV 03/05/25 07:45 03/07/25 18:28 4 MG Acetaminophen 650 mg Q6HP PRN PO 03/05/25 07:45 03/14/25 19:50 650 MG Nitroglycerin 0.4 mg Q5MINP PRN SL 03/05/25 07:45 Morphine Sulfate 2 mg Q30M PRN IV 03/05/25 07:45 Cancel Pantoprazole Sodium 40 mg BID IV 03/05/25 22:00 03/15/25 10:02 40 MG Hydralazine HCl 10 mg Q6HP PRN IV 03/05/25 22:45 03/14/25 04:34 10 MG Ceftriaxone Sodium 50 ml @ 100 mls/hr DAILY@09 IV 03/08/25 09:00 03/15/25 10:02 100 MLS/HR Sodium Chloride 1,000 ml @ 100 mls/hr Q10H IV 03/08/25 13:45 03/15/25 02:15 100 MLS/HR Amlodipine Besylate 5 mg DAILY PO 03/14/25 10:00 03/15/25 10:13 5 MG Examination: GENERAL:Normal, HEENT:Normal, NECK:Normal, LUNGS:Normal, CVS:Normal, ABDOMEN:Normal, MSK:Normal, SKIN:Normal, NEURO:Normal, :Normal laboratory and microbiology Laboratory Tests 03/12/25 05:06 Test 03/12/25 05:06 Range/Units Serum Glucose 129 H 74-106 mg/dL Microbiology Date/Time Source Procedure Growth Status 03/07/25 16:53 Voided Urine Urine Culture - Final Complete Problem List/Assessment/Plan Problem List/Assessment/Plan #1 gi bleed/rectal thickening: stercoral ulcer s/p biopsy #2 anemia s/p transfusion #3 MS #4 htn #5 uti :iv rocephin #6 gallstones with cbd dilatation: mrcp-pending #7 pelvic lymphadenopathy #8 hypokalemia: replace, recheck advance care planning- full code- time spent 19 mins Plan discussed with: Patient My Orders My Orders Orders - ISAAC TAMEZ MD Procedure Category Date Status Time * Player Services Representative CONS 03/15/25 Verified Consult Pantoprazole Tablet PHA 03/16/25 Verified (Protonix Tablet) 06:00 Dietary Evaluation Review Comments: 1) Initiate Ensure clear qd. Encourage optimal PO intake 2) Advance to low-fat diet when medically feasible, pending COSTING MANAGER approval 3) Refer to outpatient RD for weight management 4) Follow-up with gastroenterology and neurology 5) Continue to monitor I&O, labs, and skin integrity Expected Outcomes/Goals: 1) appetite and labs to improve 2) diet to advance 2) f/u in 2-3 days Date of Service: Mar 15, 2025 Billing Provider: ISAAC TAMEZ MD Common Visit Codes: [id number] INP/OBS CARE(HIGH) ISAAC TAMEZ MD Mar 15, 2025 12:04
--- NOTE | 2025-03-15 13:47 | DVH ---
MRI MRCP MRI HISTORY: CBD DILATATION COMPARISON: 03/05/25 PROCEDURE: Multiplanar multisequence MRI images were obtained of the abdomen without intravenous cont rast Additional MIPS were obtained of the biliary system. FINDINGS: Bile ducts: -Intrahepatic ducts: Non-dilated. -Extrahepatic ducts: Non-dilated. -Common bile duct: Mildly dilated to 9 mm. -Filling defects: Multiple filling defects -Stricture: None. Gallbladder: Multiple gallstones. Pancreas: Pancreatic duct: No ductal dilatation. Lesions: None. Liver: Signal intensity: Homogenous. Contour: Smooth. Size: Normal. Lesions: Tiny cyst at the hepatic dome. ADDITIONAL FINDINGS: Lung base: Normal. Pancreas: Normal. Spleen:Normal. Bowel: Normal. Adrenal glands:Normal. Kidneys and ureters: Multiple small kidney cysts. Lymph nodes:Normal. Peritoneum:Normal. Vessels: Normal. Abdominal wall: Normal. Bone: No aggressive bone lesions IMPRESSION: Dilated CBD to 9 mm with multiple stones can be seen with choledocholithiasis. Cholelithiasis.
--- NOTE | 2025-03-15 18:14 | DVHPN2 ---
Progress Note - Dictate Date Seen: Mar 15, 2025 Medical Necessity Reason Pt with a Central, PICC or Fol: No Subjective No new complaints No further rectal bleeding Stercoral ulceration of rectum found on colonoscopy Potassium level normalized to 3.8 and four Patient complains of some weakness Patient has started physical therapy MRCP shows evidence of cholelithiasis and suspected CBD stones Patient however is asymptomatic and her liver enzymes are normal vital signs Vital Sign Date Time Temp Pulse Resp B/P (MAP) Pulse Ox O2 Delivery O2 Flow Rate FiO2 03/15/25 13:00 97.2 91 18 144/79 (100) 96 97.2 03/15/25 08:00 Room Air* 0 21 Total Intake and Output 03/14/25 03/14/25 03/15/25 15:00 23:00 07:00 Intake Total 50 ml 640 ml 1080 ml Output Total 400 ml Balance 50 ml 240 ml 1080 ml medications Current Medications Medications Dose Ordered Sig/Rut Route Start Time Stop Time Status Last Admin Dose Admin Ondansetron HCl 4 mg Q4HP PRN IV 03/05/25 07:45 03/07/25 18:28 4 MG Acetaminophen 650 mg Q6HP PRN PO 03/05/25 07:45 03/15/25 15:06 650 MG Nitroglycerin 0.4 mg Q5MINP PRN SL 03/05/25 07:45 Morphine Sulfate 2 mg Q30M PRN IV 03/05/25 07:45 Cancel Hydralazine HCl 10 mg Q6HP PRN IV 03/05/25 22:45 03/14/25 04:34 10 MG Amlodipine Besylate 5 mg DAILY PO 03/14/25 10:00 03/15/25 10:13 5 MG Pantoprazole Sodium 40 mg DAILY@0600 PO 03/16/25 06:00 objective General Appearance: Alert, Oriented X3, Cooperative, No acute distress, mild distress, moderate distress, severe distress, Other HEENT: Atraumatic Lungs: Clear to auscultation, Normal air movement, Other Cardiovascular: Regular rate, Normal S1, Normal S2, No murmurs, Gallops, Rubs, Other Abdomen: Normal bowel sounds, Soft, No tenderness, No hepatospenomegaly, No masses, Other Neuro: Normal gait, Normal speech laboratory and microbiology Laboratory Tests 03/12/25 05:06 Test 03/12/25 05:06 Range/Units Serum Glucose 129 H 74-106 mg/dL Problems(with codes): (1) Choledocholithiasis (2) Cholelithiasis (3) Hypokalemia (4) Anemia (5) Abnormal finding on GI tract imaging (6) Generalized weakness (7) Melena Prognosis Plan Continue physical therapy Stool softeners and MiraLax to help with bowel activity Patient is from [place] and due to her MS she would have difficulty with transportation and getting her bile duct and CBD she has resolved as an outpatient Considered referral via social work program coordinator to higher level of care for ERCP with stone extraction and possible stent placement Once discharged patient can also follow up in my office in 4-6 weeks Dietary Evaluation Review Comments: 1) Initiate Ensure clear qd. Encourage optimal PO intake 2) Advance to low-fat diet when medically feasible, pending SERVICE ORDER CLERK approval 3) Refer to outpatient RD for weight management 4) Follow-up with gastroenterology and neurology 5) Continue to monitor I&O, labs, and skin integrity Expected Outcomes/Goals: 1) appetite and labs to improve 2) diet to advance 2) f/u in 2-3 days Plan discussed with: Patient, Other (Dr Saldana) MAL BUTLER MD Mar 15, 2025 18:14
[2025-03-16 01:00] VITALS: BP 124/89; PULSE 73; RESP 18; TEMP 97.6; O2SAT 95
[2025-03-16 05:00] VITALS: BP 142/75; PULSE 74; RESP 18; TEMP 97.9; O2SAT 95
[2025-03-16] MEDS: PANTOPRAZOLE 40 MG TAB PO SCH (06:29)
--- NOTE | 2025-03-16 11:36 | DVHDS2 ---
Discharge Summary Date of Admission March 05, 2025 at 07:39 Date of Discharge: Mar 15, 2025 Labs/Diagnostic Data: Laboratory Results Test 03/12/25 05:06 03/08/25 15:12 03/07/25 07:29 03/06/25 23:58 White Blood Count 7.2 10^3/uL (4.4-10.8) Red Blood Count 5.01 10^6/uL (4.0-5.20) Hemoglobin 9.8 g/dL (12.2-16.2) Hematocrit 32.5 % (36.0-46.0) Mean Corpuscular Volume 64.9 fL (80.0-100.0) Mean Corpuscular Hemoglobin 19.6 pg (28.0-32.0) Mean Corpuscular Hemoglobin Concent 30.2 g/dL (32.0-36.0) Red Cell Distribution Width 31.2 % (11.8-14.3) Platelet Count 314 10^3/uL (140-450) Mean Platelet Volume 8.5 fL (6.9-10.8) Neutrophils (%) (Auto) 69.5 % (37.0-80.0) Lymphocytes (%) (Auto) 16.0 % (10.0-50.0) Monocytes (%) (Auto) 10.6 % (0.0-12.0) Eosinophils (%) (Auto) 3.4 % (0.0-7.0) Basophils (%) (Auto) 0.5 % (0.0-2.0) Neutrophils # (Auto) 5.0 10 ^3/uL (1.6-8.6) Lymphocytes # (Auto) 1.2 10 ^3/uL (0.4-5.4) Monocytes # (Auto) 0.8 10 ^3/uL (0-1.3) Eosinophils # (Auto) 0.2 10 ^3/uL (0-0.8) Basophils # (Auto) 0 10 ^3/uL (0-0.2) Nucleated Red Blood Cells 0.0 % Platelet Estimate Adequate Hypochromasia (manual) Moderate Anisocytosis (manual) Moderate Microcytosis Moderate Ovalocytes Few Sodium Level 144 mmol/L (136-145) Potassium Level 4.0 mmol/L (3.5-5.1) Chloride Level 110 mmol/L (98-107) Carbon Dioxide Level 27 mmol/L (20-31) Anion Gap 7 (5-15) Blood Urea Nitrogen 9 mg/dL (9-23) Creatinine 0.56 mg/dL (0.550-1.02) Glomerular Filtration Rate Calc 100 mL/min (>90) BUN/Creatinine Ratio 16.1 (10.0-20.0) Serum Glucose 129 mg/dL (74-106) Calcium Level 8.7 mg/dL (8.7-10.4) Magnesium Level 2.0 mg/dL (1.6-2.6) Total Bilirubin 0.3 mg/dL (0.2-1.0) Aspartate Amino Transferase (AST) 8 U/L (13-40) Alanine Aminotransferase (ALT) < 9 U/L (7-40) Alkaline Phosphatase 73 U/L (46-116) Total Protein 5.9 g/dL (5.7-8.2) Albumin 3.3 g/dL (3.2-4.8) Carcinoembryonic Antigen 1.22 ng/mL (<=5.0) Prothrombin Time 11.7 sec (9.3-11.8) Prothrombin Time INR 1.12 (0.9-1.15) Activated Partial Thromboplast Time 26.5 SEC (24.5-34.5) Stool Occult Blood Negative (Negative) Stool Occult Blood Sample #3 (Negative) Test 03/05/25 11:00 03/05/25 05:53 Urine Color Colorless (Yellow) Urine Clarity Turbid (Clear) Urine pH 7.5 (5.0-9.0) Urine Specific [place] 1.008 (1.001-1.035) Urine Protein Negative (Negative) Urine Ketones Negative (Negative) Urine Blood Negative /uL (Negative) Urine Nitrite 1+ (Negative) Urine Bilirubin Negative (Negative) Urine Urobilinogen Normal mg/dL (Negative) Urine Leukocyte Esterase 3+ /uL (Negative) Urine RBC 1 /hpf (0 - 4) Urine Microscopic WBC 21 /HPF (0-5) Urine Squamous Epithelial Cells None seen /hpf (<5) Urine Bacteria Few /hpf (None Seen) Urine Glucose Normal mg/dL (Normal) Iron Level 27 ug/dL (50-170) Total Iron Binding Capacity 321 ug/dL (250-425) Percent Iron Saturation 8.4 % (15-50) Troponin I High Sensitivity 5 ng/L (</=34) Other Laboratory Tests 03/12/25 05:06 Brief Hx & Hospital Course: SEE DICTATED NOTE Condition at Discharge: Fair Final Diagnosis/Problems List hypokalemia proctitis cbd stones Discharge Disposition: Acute Care Facility Discharge Instruct/Medications Diet: Regular Activity: No Restrictions, As Tolerated Follow Up/Referral: PCP in 7 days Medications: per dec Discharge Statement: "Patient was advised to return to the ER or call 911 if any headaches, dizziness, shortness of breath, chest pain, abdominal pain, bleeding, fevers, or worsening of medical condition. Patient was counseled about treatment plan, medications, possible side effects, patientverbalized understanding. All questions were answered to the best of my ability. This discharge took greater then 30 minutes in planning, reviewing documentation, counseling the patient, and discussing with other team members." ASSESSMENT ASSESSMENT Assessment hypokalemia proctitis cbd stones Date of Service: Mar 16, 2025 Billing Provider: ISAAC TAMEZ MD Common Visit Codes: [id number] DISCH DAY >30min ISAAC TAMEZ MD Mar 16, 2025 11:36
--- NOTE | 2025-03-16 11:51 | DVHDS ---
DATE OF DISCHARGE: 03/16/2025 DATE OF TRANSFER TO A HIGHER LEVEL OF CARE: 03/16/2025 HISTORY OF PRESENT ILLNESS: The patient is a 69-year-old lady who was admitted with history of abdominal pain and dark stools and has a history of multiple sclerosis and is wheelchair bound with urinary and bladder incontinence and gallstones. HOSPITAL COURSE: The patient was seen in GI consult by Dr. Kiran. Hemoglobin was 9.4. The patient had a CT of abdomen and pelvis that showed rectal wall thickening with cholelithiasis and dilated CBD along with prominent external iliac and pelvic sidewall lymph nodes. The patient was severely hypokalemic and that was corrected. The patient underwent upper endoscopy that showed mild non-erosive gastritis with a 2 cm hiatal hernia. The patient then underwent a colonoscopy that showed ulceration in the rectum, which was consistent with colorectal ulceration as well as the patient had a long tortuous and redundant colon. The patient in view of dilated CBD had MRCP that showed multiple filling defects in the CBD. The patient was transferred to a higher level of care for an ERCP. FINAL DIAGNOSES: * Gastrointestinal bleeding with rectal thickening with sacral ulcer. * Anemia, status post transfusion. * Multiple sclerosis. * Hypertension. * Urinary tract infection. * Gallstones with common bile duct stones. * Pelvic adenopathy. Time spent in discharge planning, review of plan with the patient and nursing and paper work was 38 minutes. MD RAFI Butts/EKIvana TID: [id number] RECEIPT: [id number]
== END 2025-03-16 07:20 | disposition short-term general hospital (02) | DRG 393 ==
LOC: EDBD 00:53 → ER 00:56 → OVERFLOW 07:39 → EAST 17:12 → TELE-EAST 03-09 23:59
PROVIDERS: ADMIT Internal Medicine; ATTEND Internal Medicine
PROC: 0DB68ZX Excision of Stomach, Via Natural or Artificial Opening Endoscopic, Diagnostic (ICD-10-PCS; 2025-03-07 07:52)
PROC: 0DBP8ZX Excision of Rectum, Via Natural or Artificial Opening Endoscopic, Diagnostic (ICD-10-PCS; principal; 2025-03-10 17:48)
DX: K62.6 Ulcer of anus and rectum (principal); K29.71 Gastritis, unspecified, with bleeding; N30.00 Acute cystitis without hematuria; Q43.8 Other specified congenital malformations of intestine; K80.70 Calculus of gallbladder and bile duct without cholecystitis without obstruction; I10 Essential (primary) hypertension; Z99.3 Dependence on wheelchair; D50.9 Iron deficiency anemia, unspecified; R32 Unspecified urinary incontinence; R59.1 Generalized enlarged lymph nodes; K56.41 Fecal impaction; K62.89 Other specified diseases of anus and rectum; R15.9 Full incontinence of feces; M54.9 Dorsalgia, unspecified; R59.0 Localized enlarged lymph nodes; L98.429 Non-pressure chronic ulcer of back with unspecified severity; G35 Multiple sclerosis; K44.9 Diaphragmatic hernia without obstruction or gangrene; K31.7 Polyp of stomach and duodenum; E87.6 Hypokalemia; Z88.8 Allergy status to other drugs, medicaments and biological substances; Z83.3 Family history of diabetes mellitus; Z80.8 Family history of malignant neoplasm of other organs or systems; Z80.0 Family history of malignant neoplasm of digestive organs
CPT/HCPCS: 36415; 45380; 71045; 74176; 74181; 76705; 80048; 80053; 81001; 82270; 82378; 83540; 83550; 83735; 84132; 84484; 85025; 85610; 85730; 86850; 86900; 86901; 87086; 97163; 99291; G0378; J2003; J2250; J2405; J2470; J2704; J3480